=== PATIENT | male | born 1930 | race Caucasian/White ===

== ENCOUNTER 2017-12-23 07:50 | Inpatient (IN) | payer MEDICAID, OTHER ==
[~2017-12-23] VITALS: Ht 160 cm; Wt 56.2 kg
[2017-12-23] VITALS (7 sets, daily range): BP systolic 98–124; BP diastolic 47–70
[~2017-12-23 07:50] MED LIST: ACET-2863 PO; CARI350T PO; CLON0.1T42 PO; CLOP75TA PO; COZ50 PO; FESO8TER PO
[2017-12-23] MEDS ORDERED: FUROSEMIDE 100 MG/10 ML VIAL IVP ONE (07:55)
[2017-12-23] MEDS ORDERED: IPRATROPIUM 0.02% 0.5 MG/2.5 ML NEBU INH ONE (07:55)
[2017-12-23] MEDS ORDERED: ALBUTEROL 0.083% 2.5 MG/3 ML NEBU INH ONE (07:55)
--- NOTE | 2017-12-23 08:00 | NUR ---
87M BIBA FOR SOB X 50 MIN WHILE AT HOME; EMS STATES SAT ON SCENE WAS 74% ROOM AIR, EMS DELIVERED 1 ROUND OF ALBUTEROL/ATROVENT TX; PULSE OX ON ARRIVAL 95% ON NC AT 4L. PT STS HX OF PNA AND ASTHMA. PACEMAKER TO LEFT CHEST. PT ABLE TO SPEAK IN SHORT SENTENCES. RR ARE EVEN, TACHYPNIC AND LABORED. PT IS AOX4. GCS=15. SKIN IS PALE/COOL TO TOUCH. RT CALLED. ER FOWER BY BEDSIDE EXAMINING PT. WILL CONTINUE TO MONITOR.
--- NOTE | 2017-12-23 08:08 | NUR ---
PER DR GEORGIA ALEMAN FIRST HHN THERAPY AND CONNIE JOYCE AT BEDSIDE Addendum: 12/23/17 at 1114 by MCACPA "DR. BONNIE TONY"
[2017-12-23] MEDS ORDERED: DEXAMETHASONE 10 MG/ML VIAL IVP ONE (08:10)
--- NOTE | 2017-12-23 08:10 | NUR ---
ADMITTING DX: SOB HX: PATIENT DENIES SOB LOC AWAKE AND ALERT RESPONSIVE TO RN SKIN TONE PINK TACHYPNEIC AT 24 LABORED HHN THERAPY GIVEN ORDERED ENCOURAGED INTERMITTENT DEEP BREATHING DURING THERAPY POST THERAPY PLACED ON A SIMPLE MASK AY [address] HO AWARE
[2017-12-23 08:25] LABS: LYMPHOCYTES # (AUTO) 2.4 K/uL (2.0-11.5); LYMPHOCYTES % (AUTO) 18.5 % (20.5-51.1); MEAN CORPUSCULAR VOLUME 97.1 fL (80-94); MONOCYTES # (AUTO) 0.6 K/uL (0.8-1.0)
[2017-12-23 08:30] LABS: MEAN CORPUSCULAR HEMOGLOBIN 31 pg (27-31); MEAN CORPUSCULAR HGB CONC 32 g/dL (33-37)
[2017-12-23 08:34] LABS: ANION GAP 14.3 (8-16); CARBON DIOXIDE 25.1 mmol/L (21-32); CHLORIDE 107 mmol/L (98-107); CREATININE 1.6 mg/dL (0.7-1.3); GLUCOSE 168 mg/dL (74-106); POTASSIUM 3.4 mmol/L (3.5-5.1); SODIUM SERUM 143 mmol/L (136-145); UREA NITROGEN, BLOOD 47 mg/dL (7-18)
[2017-12-23 08:36] LABS: WHITE BLOOD COUNT (AUTO) 12.8 K/uL (4.8-10.8)
[2017-12-23 08:37] LABS: HEMATOCRIT 19.2 % (36-52); HEMOGLOBIN 6.2 g/dL (12.0-18.0); RED BLOOD CELL COUNT(AUTO) 1.98 MIL/uL (4.20-6.10)
[2017-12-23 08:38] LABS: PLATELET COUNT (AUTO) 307 K/uL (140-450); RED CELL DISTRIBUTION WIDTH 20.5 % (11.6-13.7)
[2017-12-23 08:39] LABS: BASOPHILS % (AUTO) 0.2 % (0.0-2.0); EOSINOPHILS # (AUTO) 0.2 K/uL (0-0.4); EOSINOPHILS % (AUTO) 1.2 % (0.0-4.0); MONOCYTES % (AUTO) 4.8 % (1.7-9.3); NEUTROPHILS # (AUTO) 9.6 K/uL (1.8-7.7); NEUTROPHILS % (AUTO) 75.3 % (42.2-75.2); PROTHROMBIN TIME 11.7 secs (10.8-13.4)
[2017-12-23 08:41] LABS: ALBUMIN 2.1 g/dL (3.4-5.0); ASPARTATE AMINOTRANSFERASE 13 U/L (15-37); TOTAL BILIRUBIN 0.4 mg/dL (0.0-1.0)
[2017-12-23] MEDS ORDERED: ONDANSETRON 4 MG/2 ML VIAL IVP ONE (08:45)
--- NOTE | 2017-12-23 08:45 | NUR ---
DAUGHTER BY BEDSIDE
--- NOTE | 2017-12-23 08:48 | NUR ---
ABG SAMPLE REPORT REVIEWED BY DR. BONNIE TOYN "EVERYTHING LOOKS GOOD" BROOMMAKER TO PULL BIPAP FROM ROOM AT A LATER TIME
[2017-12-23] MEDS ORDERED: TAMS0.4C96 PO (08:51)
[2017-12-23] MEDS ORDERED: DIT5 PO (08:51)
[2017-12-23] MEDS ORDERED: METO25TA PO (08:51)
[2017-12-23] MEDS ORDERED: FAMO-90 PO (08:51)
[2017-12-23] MEDS ORDERED: APIX5TAB PO (08:51)
[2017-12-23] MEDS ORDERED: DILT-135 PO (08:51)
[2017-12-23] MEDS ORDERED: FURO-572 PO (08:51)
[2017-12-23] MEDS ORDERED: ONDANSETRON 4 MG/2 ML VIAL ONE (09:17)
--- NOTE | 2017-12-23 09:20 | NUR ---
ZOFRAN 4MG VIA IV R HAND GIVEN. Addendum: 12/23/17 at 0930 by [email or web address] PER ELZIABETH ESQUEDA.
--- NOTE | 2017-12-23 09:22 | NUR ---
UA COLLECTED; DAUGHTER BY BEDSIDE. PT WITH NO COMPLATINS. PT DENIES ANY CP. PT WITH NO COMPLAINTS. NO ACUTE DISTRESS NOTED. WILL CONTINUE TO MONITOR.
[2017-12-23] MEDS ORDERED: LEVOFLOXACIN 500 MG/D5W PREMIX 100 ML IV ONE (10:10)
[2017-12-23] MEDS ORDERED: cefTRIAXone 1,000 MG VIAL ONE (10:20)
--- NOTE | 2017-12-23 10:20 | NUR ---
patient with no complaints. no acute distress noted. will continue to monitor.
[2017-12-23] MEDS ORDERED: NACL 0.9% 1,000 ML IV ONE (10:50)
--- NOTE | 2017-12-23 11:16 | NUR ---
Patient will be admitted to care of [facility]. Admited to Tele. Will go to room 106B. Belongings list completed. Bedside report to Vashti REYES. Endorsed to Vashti REYES blood is ready and at lab to be picked up.
[2017-12-23] MEDS ORDERED: LORazepam 2 MG/ML VIAL IVP PRN (11:20)
[2017-12-23] MEDS ORDERED: HYDROcodone/APAP 5/325 MG 1 TAB TAB PO PRN (11:20)
[2017-12-23] MEDS ORDERED: ONDANSETRON 4 MG/2 ML VIAL IVP PRN (11:20)
--- NOTE | 2017-12-23 11:20 | NUR ---
RECEIVED REPORT FROM ER NURSE. PATIENT IS IN STABLE CONDITION. PATIENT IS AWAKE, ALERT AND ORIENTEDX4. NO COMPLAINTS AT THIS TIME. 4L NC, NO RESP DISTRESS. VITALS ARE STABLE. L HAND 20 G SALINE LOCK. CLEAN, DRY AND INTACT. R FA 20G SL CLEAN, DRY AND INTACT. SENIOR INSPECTOR PLACED ON PATIENT, A.FIB. FALL RISK PRECAUTIONS IN PLACE. CALL LIGHT WITHIN REACH, BED IN LOW POSITION. BED ALARM ON. URINAL AT BEDSIDE.
--- NOTE | 2017-12-23 13:30 | NUR ---
1ST UNIT OF PRBC STARTED AT THIS TIME, PT AWAKE ALERT, AWARE OF PROCEDURE, CONSENT SIGNED PRIOR TO ADMISSION, PT INFORMED OF POSSIBLE S/S OF REACTIONS, VITALS STABLE, BLOOD PRODUCT VERIFIED BY 2 RN, ERNESTO AND SACHIN, PT ON HELIARC WELDER, WILL CONTINUE TO MONITOR.
--- NOTE | 2017-12-23 13:45 | NUR ---
PT TOLERATING BLOOD TRANSFUSION WELL, NO S/S REACTION NOTED, VITALS STABLE, WILL CONTINUE TO MONITOR.
--- NOTE | 2017-12-23 15:00 | NUR ---
IV WAS DISLODGED. IV TIP WAS PATENT. CHANGED BEDSHEETS W PAYROLL TAX ANALYST. PATIENT TOLERATED TURNS WELL. BED IN LOW POSITION. CALL LIGHT WITHIN REACH.
--- NOTE | 2017-12-23 16:30 | NUR ---
FINISHED BLOOD TRANSFUSION. PATIENT TOLERATED WELL. VITALS ARE WITHIN NORMAL LIMITS. WILL CONTINUE TO MONITOR THE PATIENT.
--- NOTE | 2017-12-23 17:00 | NUR ---
PER DAUGHTERS REQUEST NO MORPHINE OR NORCO. PATIENT GETS AGGRESSIVE.
--- NOTE | 2017-12-23 17:20 | NUR ---
2ND UNIT OF PRBC STARTED AT THIS TIME, PT AWAKE ALERT, AWARE OF PROCEDURE, CONSENT SIGNED PRIOR TO ADMISSION, PT INFORMED OF POSSIBLE S/S OF REACTIONS, VITALS STABLE, BLOOD PRODUCT VERIFIED BY 2 RN, YAHAIRA AND ELIS, PT ON SLASHER TENDER HELPER, WILL CONTINUE TO MONITOR.
--- NOTE | 2017-12-23 17:35 | NUR ---
PATIENT TOLERATED 2ND TRANSFUSION WELL. NO COMPLAINTS. VITALS ARE STABLE. BED IN LOW POSITION, CALL LIGHT WITHIN REACH. WILL CONTINUE TO MONITOR THE PATIENT.
[2017-12-23 18:57] LABS: CREATINE KINASE MB 1.6 ng/mL (0-3.6)
--- NOTE | 2017-12-23 19:30 | NUR ---
GAVE BEDSIDE REPORT TO CLINIC PHYSICIAN DIRECTOR NURSE. PATIENT IS IN STABLE CONDITION. HARESH WILL FINISH THE BLOOD TRANSFUSION.
--- NOTE | 2017-12-23 19:31 | NUR ---
RECEIVED REPORT FROM DAY SHIFT NURSE YAHAIRA-RN. AOX4-KHMER SPEAKING, ON 4L NC, WITH IV RIGHT HAND #20G. SKIN INTACT, BLE +1 PITTING EDEMA. BLOOD CONTINUES TO BE INFUSING. DISCUSSED PLAN OF CARE AND PT VERBALIZED UNDERSTANDING. WHITE BOARD UPDATED. BED IN LOWEST POSITION, BED BREAKS LOCKED. BED SIDE TABLE AND CALL LIGHT WITHIN REACH. NO S/S OF RESPIRATORY DISTRESS OR DISCOMFORT NOTED AT THIS TIME. WILL CONTINUE TO MONITOR.
[2017-12-23] MEDS: ALBUTEROL 0.083% 2.5 MG/3 ML NEBU INH PRN (19:44)
--- NOTE | 2017-12-23 19:50 | NUR ---
BLOOD TRANSFUSION COMPLETED. PT TOLERATED WELL. NO REACTION NOTED. WILL CONTINUE TO MONITOR.
[2017-12-23] MEDS ORDERED: ACETAMINOPHEN 325 MG TAB ONE (20:43)
[2017-12-23] MEDS: METOPROLOL 25 MG TAB PO SCH (21:00)
[2017-12-23] MEDS: APIXABAN 2.5 MG TAB PO SCH (21:00)
[2017-12-23] MEDS: TAMSULOSIN 0.4 MG CAP PO SCH (21:01)
[2017-12-23] MEDS: FAMOTIDINE 20 MG TAB PO SCH (21:01)
[2017-12-23] MEDS: methylPREDNISolone SS 125 MG/2 ML VIAL IVP SCH (21:02)
[2017-12-23] MEDS: ACETAMINOPHEN 325 MG TAB PO PRN (21:02)
--- NOTE | 2017-12-23 21:05 | NUR ---
SCHEDULED MEDICATION GIVEN. PT TOLERATED WELL. ELIQUIS WAS NOT GIVEN BECAUSE IT IS NOT AVAILABLE AT THIS TIME. INFORMED SOMMER-COPING MACHINE OPERATOR. SOMMER SPOKE WITH EARNESTINE AND WAS TOLD THAT THIS MEDICATION WOULD NOT BE AVAILABLE TONIGHT UNTIL TOMORROW MORNING WHEN PHARMACY MAKES IT AVAILABLE FOR THIS PT. PT IS AWARE OF THE REASON WHY HE WAS NOT GIVEN THIS MEDICATION. VERBALIZED UNDERSTANDING. LOPRESSOR WAS ALSO NOT GIVEN FOR LOW BLOOD PRESSURE BEFORE ADMINISTRATION. WILL CONTINUE TO MONITOR.
--- NOTE | 2017-12-23 22:45 | NUR ---
SPOKE WITH PT FAMILY MEMBER SHELLEY WELLS. SHE STATED IN THE EVENT THAT RENATO IS UNABLE TO BE REACHED TO PLEASE CALL HER . SHELLEY ALSO STATED THAT PT IS NOT TO BE GIVEN MORPHINE OR NORCO BECAUSE IT CAUSES PT TO BECOME AGGRESSIVE.
--- NOTE | 2017-12-23 22:55 | NUR ---
SPOKE WITH DR. ARAMBULA AIR ANTISUBMARINE OFFICER FOR DR. LOPEZ AND ASKED IF HE WAS AWARE OF THE LACTIC ACID INCREASING FROM 3.6 @0700 TO 4.9 @[address] DR[address] ARAMBULA SAID TO PUT IN ANOTHER ODER FOR LACTIC ACID TO BE CHECKED IN THE MORNING. WILL PUT IN THE ORDER.
[2017-12-24] VITALS: BP 144/81
--- NOTE | 2017-12-24 | NUR ---
VITAL SIGNS TAKEN AND TOLERATED WELL. NO S/S OF RESPIRATORY DISTRESS OR DISCOMFORT NOTED AT THIS TIME. PT CONTINUES TO BE AWAKE. PT STATED HAVING DIFFICULTY SLEEPING ALTHOUGH HE HAS FALLEN ASLEEP. HAVING DIFFICULTY STAYING ASLEEP. WILL CONTINUE TO MONITOR.
[2017-12-24] MEDS ORDERED: ACETAMINOPHEN 325 MG TAB ONE (01:12)
[2017-12-24] MEDS: ACETAMINOPHEN 325 MG TAB PO PRN (01:16)
--- NOTE | 2017-12-24 01:20 | NUR ---
PT REQUESTED PAIN MEDICATION FOR BUTTOCKS. MEDICATED WITH TYLENOL REQUESTED BY PT. FAMILY HAS WARNED NOT TO MEDICATE PT WITH MORPHINE OR NORCO BECAUSE THIS CAUSES PT TO BECOME AGGRESSIVE. PT TOLERATED TYLENOL WELL. WILL CONTINUE TO MONITOR.
--- NOTE | 2017-12-24 03:20 | NUR ---
PT SLEEPING AT THIS TIME. WILL CONTINUE TO MONITOR.
[2017-12-24 04:00] VITALS: BP 157/66
--- NOTE | 2017-12-24 04:00 | NUR ---
VITAL SIGNS TAKEN AND TOLERATED WELL. PT REQUESTED WARM BLANKET AND WARM CUP OF TEA, PROVIDED FOR COMFORT. WILL CONTINUE TO MONITOR.
[2017-12-24] MEDS: methylPREDNISolone SS 125 MG/2 ML VIAL IVP SCH ×3 (05:11→20:45)
--- NOTE | 2017-12-24 05:15 | NUR ---
SCHEDULED MEDICATION GIVEN AND TOLERATED WELL. WILL CONTINUE TO MONITOR.
[2017-12-24 06:24] LABS: BASOPHILS % (AUTO) 0.2 % (0.0-2.0); HEMATOCRIT 23.7 % (36-52); LYMPHOCYTES # (AUTO) 1.6 K/uL (2.0-11.5); LYMPHOCYTES % (AUTO) 9.8 % (20.5-51.1); MEAN CORPUSCULAR HEMOGLOBIN 31 pg (27-31); MEAN CORPUSCULAR HGB CONC 34 g/dL (33-37); MEAN CORPUSCULAR VOLUME 92.6 fL (80-94); MONOCYTES # (AUTO) 0.2 K/uL (0.8-1.0); MONOCYTES % (AUTO) 1.3 % (1.7-9.3); NEUTROPHILS # (AUTO) 14.7 K/uL (1.8-7.7); NEUTROPHILS % (AUTO) 88.7 % (42.2-75.2); PLATELET COUNT (AUTO) 265 K/uL (140-450); RED BLOOD CELL COUNT(AUTO) 2.55 MIL/uL (4.20-6.10); RED CELL DISTRIBUTION WIDTH 17.5 % (11.6-13.7); WHITE BLOOD COUNT (AUTO) 16.6 K/uL (4.8-10.8)
[2017-12-24 06:33] LABS: ALBUMIN 2.3 g/dL (3.4-5.0); ANION GAP 15.1 (8-16); ASPARTATE AMINOTRANSFERASE 14 U/L (15-37); CARBON DIOXIDE 25.6 mmol/L (21-32); CHLORIDE 103 mmol/L (98-107); CREATININE 1.5 mg/dL (0.7-1.3); GLUCOSE 151 mg/dL (74-106); POTASSIUM 4.7 mmol/L (3.5-5.1); SODIUM SERUM 139 mmol/L (136-145); TOTAL BILIRUBIN 0.6 mg/dL (0.0-1.0); UREA NITROGEN, BLOOD 58 mg/dL (7-18)
--- NOTE | 2017-12-24 06:51 | NUR ---
SPOKE WITH DR. ARAMBULA ABOUT LACTIC ACID RESULTS THAT HAVE TRENDED DOWN TO 2.5. TOLD DR WBC INCREASED TO 16.6. DR ASKED WHAT ANTIBIOTICS HE WAS ON. SINCE HE IS ON LEVAQUIN AND ROCEPHIN DID NOT GIVE ANY ORDERS.
--- NOTE | 2017-12-24 07:16 | NUR ---
ENDORSED PT CARE TO DAY SHIFT NURSE YOSEPH FOR CONTINUITY OF CARE. PT STABLE AT THIS TIME.
--- NOTE | 2017-12-24 07:30 | NUR ---
RECEIVED REPORT FROM INTERNAL WHOLESALER NURSE. PT IS AWAKE, ALERT, OX4, ON 4L NC, WITH IV RIGHT HAND 20G, PATENT, INTACT, AND ASYMPTOMATIC. SKIN INTACT, BLE +2 PITTING EDEMA. DISCUSSED PLAN OF CARE AND PT VERBALIZED UNDERSTANDING. WHITE BOARD UPDATED. BED IN LOWEST POSITION, BED BREAKS ON. CALL LIGHT WITHIN REACH. NO S/S OF RESPIRATORY DISTRESS OR DISCOMFORT NOTED AT THIS TIME. WILL CONTINUE TO MONITOR.
[2017-12-24 08:00] VITALS: BP 128/54
[2017-12-24] MEDS: ALBUTEROL 0.083% 2.5 MG/3 ML NEBU INH PRN ×2 (08:04→14:16)
--- NOTE | 2017-12-24 08:05 | NUR ---
SATURATION 96% ON SUPPLEMENTALO OXYGEN AT 4 LPM VIA NC POST HHN THERAPY TITRATED FIO2 TO 3 LPM HECTOR/RN NOTIFIED
--- NOTE | 2017-12-24 08:32 | NUR ---
CALLED , PT'S DAUGHTER SHELLEY. TOLD HER TO BRING EYEDROPS FOR PT. SHE SAID SHE WILL COME TODAY.
--- NOTE | 2017-12-24 08:38 | NUR ---
PATIENT HAS BEEN SCREENED AND CATEGORIZED MODERATE NUTRITION RISK. PATIENT WILL BE SEEN WITHIN 3-5 DAYS OF ADMISSION. 12/26/17 12/28/[address]
[2017-12-24] MEDS ORDERED: ENOXAPARIN 40 MG/0.4 ML SYR SUBQ SCH (09:00)
[2017-12-24] MEDS ORDERED: [UNRECOGNIZED DRUG - CODE] OP (09:27)
[2017-12-24] MEDS: FUROSEMIDE 40 MG/4 ML VIAL IVP SCH (09:29)
[2017-12-24] MEDS: DILTIAZEM 120 MG CAPER PO SCH (09:30)
[2017-12-24] MEDS: METOPROLOL 25 MG TAB PO SCH ×2 (09:30→20:46)
[2017-12-24] MEDS: FAMOTIDINE 20 MG TAB PO SCH ×2 (09:30→20:46)
[2017-12-24] MEDS: OXYBUTYNIN 5 MG TAB PO SCH (09:31)
[2017-12-24] MEDS: APIXABAN 2.5 MG TAB PO SCH ×2 (09:41→20:51)
[2017-12-24 10:43] LABS: CREATINE KINASE MB 1.9 ng/mL (0-3.6)
[2017-12-24] MEDS ORDERED: LEVOFLOXACIN 750 MG/D5W PREMIX 150 ML IV SCH (11:20)
[2017-12-24 12:00] VITALS: BP 108/42
--- NOTE | 2017-12-24 14:17 | NUR ---
DURING HHN THERAPY ENCOURAGED PATIENT FOR DEEP BREATHING AND COUGH SPONTANEOUS EXPECTORATION FOR SMALL THIN YELLOW/CLEAR SECRETIONS
--- NOTE | 2017-12-24 14:22 | NUR ---
INITIAL REVIEW FAXED TO DORIS SEAMAN AT [facility] [phone] PHONE [phone]
[2017-12-24 16:00] VITALS: BP 112/41
--- NOTE | 2017-12-24 17:00 | NUR ---
HELPED PT GOT UP USING BEDSIDE COMMODE, NO S/S OF ACUTE DISTRESS. PT HAD A BM, FORMED BROWN STOOL. CHANGED PT'S BED LINENS.
--- NOTE | 2017-12-24 19:30 | NUR ---
REPORT GIVEN FIBER WORKER NURSE. PT IN STABLE CONDITION.
--- NOTE | 2017-12-24 19:30 | NUR ---
RECEIVED PT IN STABLE CONDITION FROM AM NURSE. AWAKE, ALERT AND ORIENTED X4. SWEDISH SPEAKING. ON TELE MONITOR. BEDREST. WITH IVF INFUSING WELL ON THE RT HAND #20. CLEAR AND PATENT. PLAN OF CARE DISCUSSED AND VERBALIZED UNDERSTANDING. BED ON LOW POSITION, FREQUENT ROUNDS NEEDED. CALL LIGHT AND URINAL PLACED WITHIN EASY REACH. INSTRUCTED TO CALL FOR ANY ASSISTANCE NEEDED. WILL CONTINUE TO MONITOR.
[2017-12-24 20:00] VITALS: BP 112/47
[2017-12-24] MEDS: RESTASIS 0.05% EYE EMULSION OP SCH (20:45)
[2017-12-24] MEDS: TAMSULOSIN 0.4 MG CAP PO SCH (20:46)
[2017-12-24] MEDS ORDERED: COMMUNICATION ORDER MC SCH (21:00)
--- NOTE | 2017-12-24 21:00 | NUR ---
PT ABLE TO TAKE DUE MEDS. NO C/O ANY DISCOMFORT NOTED. NO SOB ALSO NOTED.
--- NOTE | 2017-12-24 22:00 | NUR ---
MADE ROUNDS. PT IS AWAKE. STILL WITH OCCASIONAL PRODUCTIVE COUGH. NO SOB NOTED.
[2017-12-25 00:20] VITALS: BP 125/54
[2017-12-25] MEDS: ACETAMINOPHEN 325 MG TAB PO PRN (00:52)
--- NOTE | 2017-12-25 01:52 | NUR ---
MADE ROUNDS. PT ASLEEP. NO S/S OF ANY DISCOMFORT NOR PAIN NOTED.
--- NOTE | 2017-12-25 03:00 | NUR ---
MADE ROUNDS. PT ASLEEP. NO SOB NOTED. WILL CONTINUE TO MONITOR.
[2017-12-25 04:20] VITALS: BP 118/47
[2017-12-25] MEDS: methylPREDNISolone SS 125 MG/2 ML VIAL IVP SCH ×2 (04:39→12:31)
--- NOTE | 2017-12-25 05:00 | NUR ---
PT IS ASLEEP AT THIS TIME. NO SOB NOR DISCOMFORT NOTED.
[2017-12-25 06:47] LABS: BASOPHILS % (AUTO) 0.3 % (0.0-2.0); EOSINOPHILS % (AUTO) 0.2 % (0.0-4.0); HEMATOCRIT 23.7 % (36-52); HEMOGLOBIN 7.8 g/dL (12.0-18.0); LYMPHOCYTES # (AUTO) 1.2 K/uL (2.0-11.5); LYMPHOCYTES % (AUTO) 8.4 % (20.5-51.1); MEAN CORPUSCULAR HEMOGLOBIN 31 pg (27-31); MEAN CORPUSCULAR HGB CONC 33 g/dL (33-37); MEAN CORPUSCULAR VOLUME 93.8 fL (80-94); MONOCYTES # (AUTO) 0.2 K/uL (0.8-1.0); MONOCYTES % (AUTO) 1.5 % (1.7-9.3); NEUTROPHILS # (AUTO) 12.6 K/uL (1.8-7.7); NEUTROPHILS % (AUTO) 89.6 % (42.2-75.2); PLATELET COUNT (AUTO) 274 K/uL (140-450); RED BLOOD CELL COUNT(AUTO) 2.52 MIL/uL (4.20-6.10); RED CELL DISTRIBUTION WIDTH 18.2 % (11.6-13.7)
[2017-12-25 07:03] LABS: ANION GAP 12.8 (8-16); CARBON DIOXIDE 25.8 mmol/L (21-32); CHLORIDE 103 mmol/L (98-107); CREATININE 1.5 mg/dL (0.7-1.3); GLUCOSE 154 mg/dL (74-106); POTASSIUM 4.6 mmol/L (3.5-5.1); SODIUM SERUM 137 mmol/L (136-145); UREA NITROGEN, BLOOD 58 mg/dL (7-18)
--- NOTE | 2017-12-25 07:20 | NUR ---
ENDORSED PT IN STABLE CONDITION TO AM NURSE.
--- NOTE | 2017-12-25 07:22 | NUR ---
RECEIVED REPORT FROM COOK BOAT NURSE AT BEDSIDE FOR CONTINUITY OF CARE. PATIENT AWAKE, ALERT AND ORIENTED X4. TAMAZIGHT SPEAKING. ON BEDREST WITH TELE MONITOR. IV ON THE RT HAND #20, PATENT, ASYMPTOMATIC, AND INTACT, SALINE LOCK. PLAN OF CARE DISCUSSED AND PATIENT VERBALIZED UNDERSTANDING. SAFETY PRECAUTION IN PLACE, BED ON LOW POSITION, BED ALARM ON, CALL LIGHT AND URINAL PLACED WITHIN EASY REACH. INSTRUCTED TO CALL FOR ANY ASSISTANCE NEEDED. WILL CONTINUE TO MONITOR PATIENT.
[2017-12-25 08:00] VITALS: BP 123/48
--- NOTE | 2017-12-25 08:24 | NUR ---
ORDERED MEDICATIONS GIVEN. PATIENT TOLERATED THEM WELL. FAMILY AT BEDSIDE, NO SIGNS OF DISTRESS OR SOB NOTED ON 3L HUMIDIFIED O2 VIA NC. PATIENT DENIES PAIN. SAFETY PRECAUTION IN PLACE, URINAL AND CALL LIGHT WITHIN REACH. WILL CONTINUE TO MONITOR PATIENT.
[2017-12-25] MEDS: METOPROLOL 25 MG TAB PO SCH (08:32)
[2017-12-25] MEDS: DILTIAZEM 120 MG CAPER PO SCH (08:32)
[2017-12-25] MEDS: FAMOTIDINE 20 MG TAB PO SCH (08:32)
[2017-12-25] MEDS: FUROSEMIDE 40 MG/4 ML VIAL IVP SCH (08:32)
[2017-12-25] MEDS: OXYBUTYNIN 5 MG TAB PO SCH (08:32)
[2017-12-25] MEDS: RESTASIS 0.05% EYE EMULSION OP SCH (08:33)
[2017-12-25] MEDS: APIXABAN 2.5 MG TAB PO SCH (08:38)
[2017-12-25] MEDS ORDERED: LEVO750T2 PO (11:06)
[2017-12-25] MEDS ORDERED: FURO-570 PO (11:07)
--- NOTE | 2017-12-25 11:08 | NUR ---
DR. LOPEZ IN TO SEE THE PATIENT. DISCHARGE ORDER IN. PATIENT AWARE. FAMILY MEMBERS AT BEDSIDE AWARE. PATIENT RESTING IN BED WATCHING TV. NO SIGNS OF DISTRESS OR SOB NOTED ON 3L HUMIDIFIED O2 VIA NC. PATIENT DENIES PAIN. SAFETY PRECAUTION IN PLACE, CALL LIGHT WITHIN REACH. WILL CONTINUE TO MONITOR PATIENT.
--- NOTE | 2017-12-25 11:11 | NUR ---
CALLED PATIENT'S GRANDDAUGHTER RENATO TO MAKE HER AWARE OF PATIENT'S IMPENDING DISCHARGE. SHE VERBALIZED UNDERSTANDING AND SAID THAT SHE WILL CONTACT HER UNCLES WHO LIVES WITH THE PATIENT TO GIVE THEM THE NEWS.
--- NOTE | 2017-12-25 11:20 | NUR ---
RECEIVED CALL FROM LAB AT 1110. PATIENT'S URINE POSITIVE FOR E. COLI, MDRO, AND ESBL. PAGED DR. LOPEZ. WILL AWAIT FOR HIS CALL BACK AND UPDATED ORDERS.
--- NOTE | 2017-12-25 11:24 | NUR ---
ORDERED MEDICATIONS GIVEN. PATIENT TOLERATED IT WELL. FAMILY AT BEDSIDE, NO SIGNS OF DISTRESS OR SOB NOTED ON 3L HUMIDIFIED O2 VIA NC. PATIENT DENIES PAIN. SAFETY PRECAUTION IN PLACE, CALL LIGHT WITHIN REACH. WILL CONTINUE TO MONITOR PATIENT.
[2017-12-25 12:00] VITALS: BP 114/42
[2017-12-25] MEDS ORDERED: Z-GUARD PASTE TP SCH (13:00)
--- NOTE | 2017-12-25 13:05 | NUR ---
PAGED DR. LOPEZ AGAIN FOR PATIENT'S URINE RESULTS. AWAITING HIS CALL BACK.
--- NOTE | 2017-12-25 13:09 | NUR ---
DR. LOPEZ CALLED BACK. DR. LOPEZ SAID TO HOLD DC FOR NOW. PATIENT UPDATED WITH THIS INFORMATION. JAYNE GROSS WAS CALLED AND UPDATED WITH THIS INFORMATION.
--- NOTE | 2017-12-25 13:25 | NUR ---
PATIENT MOVED FROM ROOM 106B TO 116. EXPLAINED TO PATIENT HIS URINE RESULTS AND CONTACT PRECAUTION AND PROTOCOL. PATIENT'S SON, AYESHA, CAME TO VISIT, EDUCATED HIM ON CONTACT PRECAUTION AND PROTOCOL, HE VERBALIZED UNDERSTANDING. PATIENT NOW RESTING IN BED, NO SIGNS OF DISTRESS OR SOB NOTED ON 3L OF HUMIDIFIED O2 VIA NC. SAFETY AND ISOLATION PRECAUTION IN PLACE, BED ON LOWEST SETTING, CALL LIGHT WITHIN REACH. WILL CONTINUE TO MONITOR PATIENT.
--- NOTE | 2017-12-25 14:00 | NUR ---
DR. LOPEZ CALLED BACK WITH UPDATED ORDERS. PATIENT OK TO GO HOME. NEW PRESCRIPTION OF AUGMENTIN WILL BE ADDED TO PATIENT'S MEDICATIONS. RN GAVE DR. LOPEZ INFORMATION ON PATIENT'S PREFERRED PHARMACY, [facility] ON [address] DR. LOPEZ SAID HE WILL CALL IN THE PRESCRIPTION FOR THE AUGMENTIN. RN VERBALIZED UNDERSTANDING.
[2017-12-25] MEDS ORDERED: AMOX-999 PO (14:24)
--- NOTE | 2017-12-25 15:19 | NUR ---
CALLED RENATO AGAIN TO INFORM HER OF PATIENT'S DISCHARGE. SHE VERBALIZED UNDERSTANDING AND SAID SHE WILL CONTACT AYESHA TO COME PICK PATIENT UP AT APPROPRIATE TIME AND TAKE HIM HOME.
--- NOTE | 2017-12-25 15:45 | NUR ---
DISCHARGE INSTRUCTION AND EDUCATION GIVEN TO PATIENT AND HIS SON, AYESHA. PRESCRIPTION FOR AUGMENTIN CALLED IN TO PATIENT'S PREFERRED PHARMACY [facility] ON [address] IN [place] BY DR. LOPEZ. PATIENT AND AYESHA AWARE AND VERBALIZED UNDERSTANDING. IV REMOVED, IV CATHETER INTACT, MINIMAL BLOOD NOTED. ID BANDS REMOVED, TELE MONITOR REMOVED. PATIENT NOW WILL CHANGED AND GET READY TO BE DISCHARGED.
--- NOTE | 2017-12-25 16:05 | NUR ---
PATIENT WHEELED OFF FLOOR ACCOMPANIED BY NURSE AND SON, AYESHA. PATIENT TOOK ALL OF HIS BELONGINGS WITH HIM. PATIENT IN STABLE CONDITION.
== END 2017-12-25 16:05 | disposition home or self-care (01) | DRG 871 ==
LOC: MED 07:50 → MTU 11:13 → MED 11:16 → MTU 12-25 14:18
PROVIDERS: ADMIT Hospitalist; ATTEND Hospitalist
PROC: 30233N1 Transfusion of Nonautologous Red Blood Cells into Peripheral Vein, Percutaneous Approach (ICD-10-PCS; principal; 2017-12-23)
DX: A41.9 Sepsis, unspecified organism (principal); J18.9 Pneumonia, unspecified organism; E87.2 Acidosis; I13.0 Hypertensive heart and chronic kidney disease with heart failure and stage 1 through stage 4 chronic kidney disease, or unspecified chronic kidney disease; E88.09 Other disorders of plasma-protein metabolism, not elsewhere classified; I95.9 Hypotension, unspecified; I48.0 Paroxysmal atrial fibrillation; I50.9 Heart failure, unspecified; J44.0 Chronic obstructive pulmonary disease with (acute) lower respiratory infection; J44.1 Chronic obstructive pulmonary disease with (acute) exacerbation; E87.6 Hypokalemia; D64.9 Anemia, unspecified; E03.9 Hypothyroidism, unspecified; N40.0 Benign prostatic hyperplasia without lower urinary tract symptoms; N18.9 Chronic kidney disease, unspecified; Y95 Nosocomial condition; Z87.891 Personal history of nicotine dependence; Z95.0 Presence of cardiac pacemaker; Z79.899 Other long term (current) drug therapy
CPT/HCPCS: 36415; 36600; 71045; 80048; 80053; 82550; 82553; 82803; 82948; 83540; 83605; 83874; 83880; 84484; 85025; 85379; 85610; 85730; 86886; 86900; 86901; 86920; 87040; 87081; 87086; 87186; 93005; 94640; 96365; 96367; 96375; 99285; J0696; J1100; J1940; J1956; J2405; J2930; J7030; J7060; J7613; J7644; P9016; Q0092

== ENCOUNTER 2018-01-06 10:40 | Inpatient (IN) | payer OTHER ==
[~2018-01-06] VITALS: Ht 165.1 cm; Wt 57.7 kg
[~2018-01-06 10:40] MED LIST changes: -ACET-2863 PO; +AMOX-999 PO; +APIX5TAB PO; -CARI350T PO; -CLON0.1T42 PO; -CLOP75TA PO; -COZ50 PO; +DILT-135 PO; +DIT5 PO; +FAMO-90 PO; -FESO8TER PO; +FURO-570 PO; +FURO-572 PO; +LEVO750T2 PO; +METO25TA PO; +TAMS0.4C96 PO; +[UNRECOGNIZED DRUG - CODE] OP
--- NOTE | 2018-01-06 10:43 | NUR ---
PT BIBA BLS TO BED 6
[2018-01-06 10:49] VITALS: BP 112/57
--- NOTE | 2018-01-06 10:50 | NUR ---
87 /M BIBA FROM HOME FOR LBP & LALO FOOT PAIN & SWELLING X 1 WEEK. DENIES N/V/D; SKIN IS PINK/WARM/DRY; AAOX4 , AMB WITH ASSISTANCE AT HOME; LUNGS CONGESTED BL. PATIENT STATES PAIN OF 5/10 AT THIS TIME; VSS; PATIENT POSITIONED FOR COMFORT; HOB ELEVATED; BEDRAILS UP X2; BED DOWN. ER MADE AWARE OF PT STATUS. Addendum: 01/06/18 at 1338 by [email or web address] BLISTER R BUTTOCK
--- NOTE | 2018-01-06 10:50 | NUR ---
Note undone in EDM - 01/06/18 at 1302 by [email or web address] 87 /M BIBA FROM HOME FOR LBP & LALO FOOT PAIN & SWELLING X 1 WEEK. DENIES N/V/D; SKIN IS PINK/WARM/DRY; AAOX4 , AMB WITH ASSISTANCE AT HOME; LUNGS CLEAR BL. PATIENT STATES PAIN OF 5/10 AT THIS TIME; VSS; PATIENT POSITIONED FOR COMFORT; HOB ELEVATED; BEDRAILS UP X2; BED DOWN. ER MD MADE AWARE OF PT STATUS.
[2018-01-06] MEDS ORDERED: NACL 0.9% 1,000 ML IV ONE ×2 (11:05→12:00)
[2018-01-06] MEDS: ALBUTEROL SULFATE/IPRATROPIU 3 ML SOL IH ONE ×2 (11:20→13:16)
[2018-01-06 11:50] LABS: BASOPHILS % (AUTO) 0.3 % (0.0-2.0); EOSINOPHILS # (AUTO) 0.3 K/uL (0-0.4); EOSINOPHILS % (AUTO) 2.1 % (0.0-4.0); HEMATOCRIT 23.2 % (36-52); HEMOGLOBIN 7.5 g/dL (12.0-18.0); LYMPHOCYTES # (AUTO) 1.5 K/uL (2.0-11.5); LYMPHOCYTES % (AUTO) 12.3 % (20.5-51.1); MEAN CORPUSCULAR HEMOGLOBIN 31 pg (27-31); MEAN CORPUSCULAR HGB CONC 32 g/dL (33-37); MEAN CORPUSCULAR VOLUME 96.4 fL (80-94); MONOCYTES # (AUTO) 0.8 K/uL (0.8-1.0); MONOCYTES % (AUTO) 6.9 % (1.7-9.3); NEUTROPHILS # (AUTO) 9.6 K/uL (1.8-7.7); NEUTROPHILS % (AUTO) 78.4 % (42.2-75.2); PLATELET COUNT (AUTO) 238 K/uL (140-450); RED BLOOD CELL COUNT(AUTO) 2.41 MIL/uL (4.20-6.10); RED CELL DISTRIBUTION WIDTH 17.3 % (11.6-13.7); WHITE BLOOD COUNT (AUTO) 12.2 K/uL (4.8-10.8)
[2018-01-06] MEDS ORDERED: ALBUTEROL 0.083% 2.5 MG/3 ML NEBU INH ONE (11:50)
[2018-01-06] MEDS ORDERED: VANCOMYCIN 1,000 MG in DEXTROSE 5% 250 ML IV ONE (12:00)
[2018-01-06] MEDS ORDERED: methylPREDNISolone SS 125 MG/2 ML VIAL IVP ONE (12:00)
[2018-01-06] MEDS ORDERED: PIPERACILLIN/TAZOBACTAM 3.375 GM in DEXTROSE 5% 50 ML IV ONE (12:00)
[2018-01-06] MEDS ORDERED: TAMS0.4C96 PO (12:10)
[2018-01-06] MEDS ORDERED: METO50TE2 PO (12:12)
[2018-01-06] MEDS ORDERED: DIT5 PO (12:13)
[2018-01-06] MEDS ORDERED: FAMO-90 PO (12:14)
[2018-01-06] MEDS ORDERED: FURO-572 PO (12:15)
[2018-01-06 12:16] LABS: ALBUMIN 2.5 g/dL (3.4-5.0); ANION GAP 10.2 (8-16); ASPARTATE AMINOTRANSFERASE 15 U/L (15-37); CARBON DIOXIDE 31.7 mmol/L (21-32); CHLORIDE 101 mmol/L (98-107); CREATININE 1.6 mg/dL (0.7-1.3); GLUCOSE 114 mg/dL (74-106); POTASSIUM 3.9 mmol/L (3.5-5.1); SODIUM SERUM 139 mmol/L (136-145); TOTAL BILIRUBIN 0.5 mg/dL (0.0-1.0); UREA NITROGEN, BLOOD 41 mg/dL (7-18)
[2018-01-06] MEDS ORDERED: DILT-135 (12:16)
[2018-01-06] MEDS ORDERED: FLONAS NS (12:19)
[2018-01-06] MEDS ORDERED: NACL 0.9% 1,000 ML IV SCH (12:34)
[2018-01-06] MEDS ORDERED: ACETAMINOPHEN 325 MG TAB PO PRN ×2 (12:35→13:20)
[2018-01-06] MEDS ORDERED: ONDANSETRON 4 MG/2 ML VIAL IM/IVP PRN (12:35)
[2018-01-06] MEDS ORDERED: DOCUSATE SODIUM 100 MG GELCAP PO PRN (12:35)
[2018-01-06] MEDS ORDERED: HYDROcodone/APAP 7.5/325 MG 1 TAB PO PRN (12:35)
[2018-01-06] MEDS ORDERED: PIPERACILLIN/TAZOBACTAM 3.375 GM VIAL IV ONE (12:42)
[2018-01-06] MEDS ORDERED: VANCOMYCIN 1,000 MG VIAL ONE (12:42)
[2018-01-06 12:56] LABS: APPEARANCE,URINE CLEAR (CLEAR); BILIRUBIN,URINE NEGATIVE (NEGATIVE); BLOOD, URINE NEGATIVE (NEGATIVE); COLOR,URINE YELLOW (YELLOW); LEUKOCYTE ESTERASE ,URINE NEGATIVE (NEGATIVE); NITRITE, URINE NEGATIVE (NEGATIVE); PH,URINE 7.5 (5.0-9.0); UGLUCOSE NEGATIVE (NEGATIVE)
[2018-01-06] MEDS ORDERED: APIX5TAB PO (13:01)
[2018-01-06] MEDS ORDERED: ALBUTEROL SULFATE/IPRATROPIU 3 ML SOL IH ONE (13:15)
[2018-01-06] MEDS ORDERED: ONDANSETRON 4 MG/2 ML VIAL IVP PRN (13:20)
[2018-01-06] MEDS ORDERED: LORazepam 2 MG/ML VIAL IVP PRN (13:20)
--- NOTE | 2018-01-06 13:21 | NUR ---
RT AT BEDSIDE
[2018-01-06 13:30] LABS: RBC,URINE 0-5 (RARE) /HPF (0-5); WBC,URINE 0-5 (RARE) /HPF (0-5)
[2018-01-06] MEDS ORDERED: VANCOMYCIN PER PHARMACY MC PRN (13:30)
[2018-01-06 13:33] LABS: PROTHROMBIN TIME 10.9 secs (10.8-13.4)
--- NOTE | 2018-01-06 13:55 | NUR ---
PATIENT ARRIVED ON [facility] UNIT FROM ER BED/GURNEY, ABLE TO AMBULATE FROM ER BED/GURNEY TO MST BED WITH ASSISTANCE. NO DISTRESS NOTED. V/S STABLE. RESPIRATIONS EVEN, UNLABORED, ON 3L/MIN VIA NC. AAOX3, CALM, COOPERATIVE, SKIN COLOR APPROPRIATE TO ETHNICITY, WARM TO TOUCH. HAS RIGHT HIP BLISTER THAT IS NOT OPEN, OTHERWISE SKIN INTACT THROUGHOUT BODY. IV SITE INTACT, PATENT, AND INFUSING IV ANTIBIOTIC AT THIS TIME. ABDOMEN SOFT, NON-DISTENDED. PAIN WITHIN TOLERABLE AT THIS TIME. ORIENTED PATIENT TO ROOM AND CALL LIGHT. REVIEWED PLAN OF CARE WITH PATIENT. PATIENT VERBALIZED UNDERSTANDING. SAFETY MEASURES IN PLACE, CALL LIGHT WITHIN REACH. WILL CONTINUE TO MONITOR.
[2018-01-06 14:05] LABS: CHOL/HDL RATIO 2.1 (1-4.5); FREE T4 (FREE THYROXINE) 0.85 ng/dL (0.76-1.46); MAGNESIUM 2.4 mg/dL (1.8-2.4); PHOSPHORUS 4.3 mg/dL (2.5-4.9); THYROID STIMULATING HORMONE 5.65 uIU/mL (0.34-3.74)
--- NOTE | 2018-01-06 14:05 | NUR ---
Patient will be admitted to [facility]. Admited to TELE. Will go to room 119B. Belongings list completed. Report to ZULEMA REYES.
[2018-01-06 14:13] VITALS: BP 112/50
[2018-01-06] MEDS: NACL 0.9% 1,000 ML IV SCH ×2 (15:01→15:37)
--- NOTE | 2018-01-06 16:00 | NUR ---
PATIENT LYING IN BED SLEEPING, AROUSABLE BY VOICE. NO DISTRESS NOTED. DENIES ANY PAIN AT THIS TIME. RESPIRATIONS EVEN, UNLABORED, ON O2 3L/MIN VIA NC. SAFETY MEASURES IN PLACE, CALL LIGHT WITHIN REACH. WILL CONTINUE TO MONITOR.
[2018-01-06] MEDS: HYDROcodone/APAP 5/325 MG 1 TAB TAB PO PRN (18:23)
--- NOTE | 2018-01-06 18:24 | NUR ---
ASSISTED PATIENT TO BATHROOM AND BACK TO BED. COMPLAINS OF 6/10 LOW BACK PAIN, NORCO GIVEN PER MD ORDERS. SAFETY MEASURES IN PLACE, CALL LIGHT WITHIN REACH. WILL CONTINUE TO MONITOR.
--- NOTE | 2018-01-06 19:30 | NUR ---
GAVE REPORT TO RADIO ANNOUNCER NURSE FOR CONTINUITY OF CARE. PATIENT IN STABLE CONDITION.
--- NOTE | 2018-01-06 19:31 | NUR ---
RECD. RESTING IN BED, AWAKE, A/OX3, ZAMBIAN BUT ABLE TO SPEAK AND UNDERSTAND SWEDISH. WATCHING TV. RESPIRATION EVEN AND UNLABORED. ON AT 3 LITERS VIA N/C, 02 SAT - 94%. DIMINISHED LUNG SOUNDS ON BILATERAL AUSCULTATION. IV OF NS AT 80 ML/HR INFUSING, RIGHT AC G20. WITH OCCASIONAL PRODUCTIVE COUGHING, MODERATE AMOUNT OF PHLEGM, WHITE IN COLOR NOTED. SAFETY MEASURES ENFORCED. PLAN OF CARE FOR THE SHIFT DISCUSSED. VERBALIZED UNDERSTANDING. DENIES PAIN 0/10.
--- NOTE | 2018-01-06 19:52 | NUR ---
Patient's Plan of Care was discussed and reviewed with SECURITY INTELLIGENCE ANALYST: Anna MILLAN.
[2018-01-06 20:00] VITALS: BP 123/41
[2018-01-06 20:16] LABS: CREATINE KINASE MB 1.5 ng/mL (0-3.6)
--- NOTE | 2018-01-06 20:47 | NUR ---
RECEIVED PATIENT ON 3L NASAL CANNULA. O2 SAT 94%. NO RESPIRATORY DISTRESS NOTED. NO BREATHING TX INDICATED AT THIS TIME. WILL CONTINUE TO MONITOR.
[2018-01-06] MEDS ORDERED: PIPERACILLIN/TAZOBACTAM 3.375 GM in DEXTROSE 5% 50 ML IV SCH (21:00)
[2018-01-06] MEDS: PIPER/TAZO 3.375GM/D5W PREMIX 50 ML IV SCH (21:00)
[2018-01-06] MEDS: PIPERACILLIN/TAZOBACTAM 3.375 GM VIAL IV ONE ×2 (22:11→22:15)
[2018-01-07] VITALS: BP 128/51
--- NOTE | 2018-01-07 | NUR ---
SLEEPING COMFORTABLY IN BED.
[2018-01-07] MEDS: HYDROcodone/APAP 5/325 MG 1 TAB TAB PO PRN ×3 (01:16→23:19)
--- NOTE | 2018-01-07 01:45 | NUR ---
AMBULATED TO BR. HAD LIQUID BM BLACK IN COLOR, MODERATE AMOUNT. WILL INFORMED .
[2018-01-07] MEDS: NACL 0.9% 1,000 ML IV SCH ×3 (01:50→21:11)
[2018-01-07] MEDS: ALBUTEROL 0.083% 2.5 MG/3 ML NEBU IH PRN ×3 (02:00→19:39)
--- NOTE | 2018-01-07 03:00 | NUR ---
SLEEPING COMFORTABLY IN BED.
[2018-01-07 04:00] VITALS: BP 123/51
[2018-01-07] MEDS ORDERED: PIPERACILLIN/TAZOBACTAM 3.375 GM VIAL IV ONE (05:27)
--- NOTE | 2018-01-07 05:30 | NUR ---
ASSISTED TO AMBULATE IN THE BR TO VOID. BACK TO BED AFTER VOIDING. WITH SOB ON EXERTION.
[2018-01-07] MEDS: PIPER/TAZO 3.375GM/D5W PREMIX 50 ML IV SCH ×3 (05:42→21:11)
[2018-01-07 06:25] LABS: LYMPHOCYTES # (AUTO) 0.7 K/uL (2.0-11.5); LYMPHOCYTES % (AUTO) 11.6 % (20.5-51.1); MEAN CORPUSCULAR HEMOGLOBIN 32 pg (27-31); MEAN CORPUSCULAR HGB CONC 33 g/dL (33-37); MEAN CORPUSCULAR VOLUME 95.9 fL (80-94); MONOCYTES # (AUTO) 0.1 K/uL (0.8-1.0); MONOCYTES % (AUTO) 1.4 % (1.7-9.3); NEUTROPHILS # (AUTO) 5.5 K/uL (1.8-7.7); PLATELET COUNT (AUTO) 198 K/uL (140-450); RED BLOOD CELL COUNT(AUTO) 2.03 MIL/uL (4.20-6.10); WHITE BLOOD COUNT (AUTO) 6.4 K/uL (4.8-10.8)
[2018-01-07 06:45] LABS: ANION GAP 13.2 (8-16); CARBON DIOXIDE 24.9 mmol/L (21-32); CHLORIDE 106 mmol/L (98-107); CREATININE 1.4 mg/dL (0.7-1.3); GLUCOSE 143 mg/dL (74-106); POTASSIUM 4.1 mmol/L (3.5-5.1); SODIUM SERUM 140 mmol/L (136-145); UREA NITROGEN, BLOOD 38 mg/dL (7-18)
[2018-01-07 06:54] LABS: HEMOGLOBIN 6.5 g/dL (12.0-18.0)
[2018-01-07 06:55] LABS: HEMATOCRIT 19.5 % (36-52)
--- NOTE | 2018-01-07 07:00 | NUR ---
SLEEPING COMFORTABLY IN BED. NO RESPIRATORY DISTRESS NOTED DURING SHIFT. WILL ENDORSED TO AM NURSE FOR CONTINUITY OF CARE.
--- NOTE | 2018-01-07 07:30 | NUR ---
PT REPORT RECEIVED FORM CONTENT SPECIALIST NURSE. PT HGB 6.5, 2 PRBC ORDERED. PT RESPIRATIONS EVEN, UNLABORED, ON 3L/MIN VIA NC. PT IS AAOX3. PT HAD BLACK STOOL ACCORDING TO CONTENT SPECIALIST NURSE. IV SITE TO THE RIGHT AC, INTACT, PATENT, AND INFUSING WELL. ABDOMEN SOFT, NON-DISTENDED. PAIN WITHIN TOLERABLE AT THIS TIME. CALL LIGHT WITHIN REACH. SAFETY MEASURES IN PLACE, WILL CONTINUE TO MONITOR.
[2018-01-07 07:32] LABS: T4 (THYROXINE) 5.8 ug/dL (4.5-12.0)
[2018-01-07 08:00] VITALS: BP 120/60
--- NOTE | 2018-01-07 09:10 | NUR ---
LAB CANCELLED PRBC, CALLED LAB WHO SAID NEED NEW TYPE AND SCREEN AND CROSS MATCH BECAUSE IT WAS NOT DONE IN ER.
--- NOTE | 2018-01-07 10:10 | NUR ---
HELPED PT AMB TO RESTROOM, PT HAD BLACK STOOL. SAMPLE COLLECTED AND SENT TO LAB.
[2018-01-07 12:00] VITALS: BP 148/55
--- NOTE | 2018-01-07 13:25 | NUR ---
Membership Sales Manager Note: I called and spoke with Asia from [facility] , informed her patient reported his home O2 concentrator isn't working properly. Per Asia, she will contact patient's sons Barrett or Beka and assist them with this issue.
--- NOTE | 2018-01-07 13:43 | NUR ---
PATIENT HAS BEEN SCREENED AND CATEGORIZED HIGH NUTRITION RISK. PATIENT WILL BE SEEN WITHIN 1-2 DAYS OF ADMISSION. 01/07/18 01/08/[address]
--- NOTE | 2018-01-07 13:50 | NUR ---
[facility] and when discharge to use [facility] home health , he is in special program [facility] [phone]
--- NOTE | 2018-01-07 14:10 | NUR ---
FIRST UNIT OF PRBC OBTAIN, WILL START ADMINISTERING.
[2018-01-07] MEDS: VANCOMYCIN 750 MG in DEXTROSE 5% 250 ML IV SCH (14:16)
[2018-01-07 15:04] LABS: CREATINE KINASE MB 2.7 ng/mL (0-3.6)
[2018-01-07 16:00] VITALS: BP 107/81
--- NOTE | 2018-01-07 18:25 | NUR ---
SECOND PRBC RUNNING RIGHT NOW. PT IS AFEBRILE. BP STABLE.
[2018-01-07] MEDS: MUPIROCIN 2% OINT 22 GM TUBE TP SCH (18:54)
[2018-01-07] MEDS: CHLORHEXADINE GLUC 2% CLOTH TP SCH (18:54)
--- NOTE | 2018-01-07 19:30 | NUR ---
REPORT GIVEN TO TANK TRUCK OPERATOR RN. PT IN STABLE CONDITION.
--- NOTE | 2018-01-07 19:31 | NUR ---
PT REPORT RECEIVED FORM HORSE TREKKING GUIDE NURSE. CONTINUED RBC INFUSION. ANOX3, PT RESPIRATIONS EVEN, UNLABORED, ON 3L/MIN VIA NC, IV SITE TO THE RIGHT AC, INTACT, PATENT, AND INFUSING WELL. NO S/S OF RESPIRATORY DISTRESS OR DISCOMFORT AT THIS TIME. DISCUSSED PLAN OF CARE AND PT VERBALIZED UNDERSTANDING. WHITE BOARD UPDATED. BED IN LOWEST POSITION, BED BREAKS ON. BED SIDE TABLE AND CALL LIGHT WITHIN REACH. WILL CONTINUE TO MONITOR.
[2018-01-07 20:00] VITALS: BP 148/60
[2018-01-07] MEDS ORDERED: METOPROLOL SUCCINATE 50 MG TABER PO SCH (21:00)
[2018-01-07] MEDS ORDERED: RESTASIS 0.05% OP SCH (21:00)
[2018-01-07] MEDS ORDERED: NON-FORMULARY ITEM (Apixaban (Eliquis) 5 MG) PO SCH (21:00)
[2018-01-07] MEDS ORDERED: EYE EMULSION OP SCH (21:00)
[2018-01-07] MEDS: FAMOTIDINE 20 MG TAB PO SCH (21:11)
[2018-01-07] MEDS: TAMSULOSIN 0.4 MG CAP PO SCH (21:12)
[2018-01-07] MEDS: APIXABAN 2.5 MG TAB PO SCH (21:24)
--- NOTE | 2018-01-07 21:25 | NUR ---
VITAL SIGNS TAKEN AND SCHEDULED MEDICATION GIVEN. PT TOLERATED WELL. NO S/S OF RESPIRATORY DISTRESS OR DISCOMFORT AT THIS TIME. WILL CONTINUE TO MONITOR.
--- NOTE | 2018-01-07 23:25 | NUR ---
PT HAD PAIN ON HIS BACK AND MEDICATED WITH NORCO PRN. WILL CONTINUE TO MONITOR. VITAL SIGNS TAKEN AND STABLE.
[2018-01-08] VITALS: BP 141/61
--- NOTE | 2018-01-08 02:00 | NUR ---
PT CONTINUES TO SLEEP. WILL CONTINUE TO MONITOR.
[2018-01-08] MEDS: NACL 0.9% 1,000 ML IV SCH ×2 (02:50→14:01)
[2018-01-08 04:00] VITALS: BP 141/68
--- NOTE | 2018-01-08 04:00 | NUR ---
PT CONTINUES TO SLEEP. NO S/S OF RESPIRATORY DISTRESS OR DISCOMFORT AT THIS TIME. WILL CONTINUE TO MONITOR.
[2018-01-08] MEDS: ALBUTEROL 0.083% 2.5 MG/3 ML NEBU IH PRN ×3 (04:17→19:06)
[2018-01-08] MEDS: PIPER/TAZO 3.375GM/D5W PREMIX 50 ML IV SCH ×3 (05:06→20:13)
--- NOTE | 2018-01-08 05:10 | NUR ---
SCHEDULED MEDICATION GIVEN. TOLERATED WELL. PT CONTINUES TO SLEEP. NO S/S OF RESPIRATORY DISTRESS OR DISCOMFORT NOTE AT THIS TIME. WILL CONTINUE TO MONITOR.
[2018-01-08 06:47] LABS: BASOPHILS % (AUTO) 0.1 % (0.0-2.0); EOSINOPHILS % (AUTO) 0.4 % (0.0-4.0); HEMATOCRIT 26.8 % (36-52); LYMPHOCYTES # (AUTO) 1.9 K/uL (2.0-11.5); LYMPHOCYTES % (AUTO) 20.3 % (20.5-51.1); MEAN CORPUSCULAR HEMOGLOBIN 31 pg (27-31); MEAN CORPUSCULAR HGB CONC 34 g/dL (33-37); MEAN CORPUSCULAR VOLUME 91.8 fL (80-94); MONOCYTES # (AUTO) 0.6 K/uL (0.8-1.0); MONOCYTES % (AUTO) 6.2 % (1.7-9.3); NEUTROPHILS # (AUTO) 6.9 K/uL (1.8-7.7); PLATELET COUNT (AUTO) 185 K/uL (140-450); RED BLOOD CELL COUNT(AUTO) 2.92 MIL/uL (4.20-6.10); RED CELL DISTRIBUTION WIDTH 18.6 % (11.6-13.7); WHITE BLOOD COUNT (AUTO) 9.5 K/uL (4.8-10.8)
--- NOTE | 2018-01-08 07:17 | NUR ---
ENDORSED PT CARE TO DAY SHIFT NURSE YOSEPH FOR CONTINUITY OF CARE.
--- NOTE | 2018-01-08 07:30 | NUR ---
PT REPORT RECEIVED FORM VIDEO ENGINEER NURSE. PT IS AAOX3, PT RESPIRATIONS EVEN, UNLABORED, ON 3L/MIN VIA NC. IV SITE TO THE RIGHT AC, SL. IV CATH 22G TO LEFT FA, INTACT, PATENT, AND INFUSING WELL. ABDOMEN SOFT, NON-DISTENDED. DENIES PAIN. CALL LIGHT WITHIN REACH. SAFETY MEASURES IN PLACE, WILL CONTINUE TO MONITOR.
[2018-01-08 08:00] VITALS: BP 124/55
[2018-01-08] MEDS: FAMOTIDINE 20 MG TAB PO SCH ×2 (09:08→20:17)
[2018-01-08] MEDS: DILTIAZEM 120 MG CAPER PO SCH (09:08)
[2018-01-08] MEDS: METOPROLOL SUCCINATE 50 MG TABER PO SCH (09:08)
[2018-01-08] MEDS: FUROSEMIDE 40 MG TAB PO SCH (09:08)
[2018-01-08] MEDS: BISACODYL 5 MG TABEC PO SCH ×3 (09:09→16:35)
[2018-01-08] MEDS: OXYBUTYNIN 5 MG TAB PO SCH (09:09)
[2018-01-08] MEDS: APIXABAN 2.5 MG TAB PO SCH ×2 (09:12→20:16)
[2018-01-08 11:01] LABS: ANION GAP 12.8 (8-16); CARBON DIOXIDE 23.9 mmol/L (21-32); CHLORIDE 107 mmol/L (98-107); CREATININE 1.2 mg/dL (0.7-1.3); GLUCOSE 90 mg/dL (74-106); POTASSIUM 3.7 mmol/L (3.5-5.1); SODIUM SERUM 140 mmol/L (136-145); UREA NITROGEN, BLOOD 29 mg/dL (7-18)
[2018-01-08 12:00] VITALS: BP 121/51
[2018-01-08] MEDS ORDERED: MAGNESIUM CITRATE 300 ML BTL PO SCH ×2 (13:00→19:30)
--- NOTE | 2018-01-08 13:20 | NUR ---
FAXED CONCURRENT REVIEW TO [facility] [phone] PHONE DORIS [phone]
[2018-01-08] MEDS: SODIUM FERRIC GLUCONATE 125 MG in NACL 0.9% 100 ML IV SCH (13:34)
--- NOTE | 2018-01-08 13:35 | NUR ---
PT IS BACK TO THE FLOOR. ESOPHAGRAM DONE. PLACE 3L O2 NC BACK. NO S/S OF ACUTE DISTRESS.
--- NOTE | 2018-01-08 13:38 | NUR ---
BATTALION CHIEF NOTE [id number] Modified Barium Swallow Study completed. Impression: Flash penetration of thin liquid via initial self-administered cup sip (entry into laryngeal vestibule, but immediately cleared) x1. No further aspiration/penetration noted on self-administrated, consecutive cup sips of thin liquids or puree textures. Min residues remained at BOT, posterior pharyngeal wall, valleculae, and pyriforms, however cleared w/reflexive swallow. Recommend: -Puree texture + thin liquids for all PO intake, NO STRAWS -Upright at 90 during and 20 min after intake, tray set up assistance as needed. -Small bites/sips, slow rate, alternate bites/sips. -Cue for second swallow after 2-3 bites/sips. -Further BATTALION CHIEF intervention not indicated. G8996: CI G8997: CI G8998: CI Swallow NOMS 3
--- NOTE | 2018-01-08 13:44 | NUR ---
01/08/18 RD INITIAL ASSESSMENT COMPLETED PLEASE REFER TO NUTRITION ASSESSMENT UNDER CARE ACTIVITY FOR ESTIMATED NUTRITIONAL NEEDS. 1. CONTINUE CLEAR LIQUID DIET MEDICALLY NECESSARY. 2. WHEN PT ADVANCED TO PO DIET, RECOMMEND MECHANICAL SOFT, CARDIAC, AND RENAL DIET. 3. RD TO FOLLOW-UP 2-3 DAYS, HIGH RISK NADINE MARTIN RD
--- NOTE | 2018-01-08 14:10 | NUR ---
HELPED PT AMB TO RESTROOM. CHANGED PT'S GOWN. AND BED LINENS.
--- NOTE | 2018-01-08 15:00 | NUR ---
REPORT GIVEN TO JOSE JUAN REYES. PT IN STABLE CONDITION.
[2018-01-08 16:00] VITALS: BP 109/53
--- NOTE | 2018-01-08 16:10 | NUR ---
PATIENT AWAKE, ALERT. RESPIRATION EVEN, UNLABOR ON 2L NC. DENIED PAIN, SOB AT THIS TIME. VS IS STABLE. NO DISTRESS NOTED. CALL LIGHT WITHIN REACH
[2018-01-08] MEDS: MUPIROCIN 2% OINT 22 GM TUBE TP SCH (16:36)
[2018-01-08] MEDS: FERROUS SULFATE 325 MG TABEC PO SCH (16:36)
[2018-01-08] MEDS: CHLORHEXADINE GLUC 2% CLOTH TP SCH (16:37)
--- NOTE | 2018-01-08 18:53 | NUR ---
PATIENT AWAKE, ALERT. RESPIRATION EVEN, UNLABOR ON 2L NC. ASSISTED PATIENT TO THE BATHROOM, STEADY GAIT. NO DISTRESS NOTED AT THIS TIME. CALL LIGHT WITHIN REACH
--- NOTE | 2018-01-08 19:18 | NUR ---
ENDORSEMENT GIVEN TO THE CARD FEEDER NURSE. PATIENT IS STABLE AT THIS TIME
--- NOTE | 2018-01-08 19:30 | NUR ---
RECEIVED REPORT FROM DAY SHIFT, PATIENT WALKED TO THE BATHROOM AND RESTING IN BED NOW. NO S/S OF DISTRESS NOTED, RESPIRATION EVEN AND UNLABORED, ON NC 2L. IV PATENT AND INTACT, INFUSING NS AT 80ML/HR. EDUCATED ON THE BOWEL PREPARATION FOR COLONOSCOPY, PATIENT VERBALIZED UNDERSTANDING. CALL LIGHT WITHIN REACH, SAFETY MEASURE ENSURED, WILL CONTINUE TO MONITOR.
[2018-01-08 20:00] VITALS: BP 121/63
[2018-01-08] MEDS: EYE EMULSION OP SCH (20:14)
[2018-01-08] MEDS: RESTASIS 0.05% OP SCH (20:14)
[2018-01-08] MEDS: TAMSULOSIN 0.4 MG CAP PO SCH (20:16)
--- NOTE | 2018-01-08 20:26 | NUR ---
DUE MEDICATION GIVEN, PATIENT TOLERATED WELL. NO S/S OF DISTRESS NOTED, RESPIRATION EVEN AND UNLABORED, CALL LIGHT WITHIN REACH, SAFETY MEASURE ENSURED, WILL CONTINUE TO MONITOR.
--- NOTE | 2018-01-08 22:30 | NUR ---
PATIENT IS SLEEPING, RESPIRATION EVEN AND UNLABORED, NO S/S OF DISTRESS NOTED, CALL LIGHT WITHIN REACH, SAFETY MEASURE ENSURED, WILL CONTINUE TO MONITOR.
[2018-01-09] VITALS: BP 112/47
[2018-01-09] MEDS: ALBUTEROL 0.083% 2.5 MG/3 ML NEBU IH PRN ×2 (00:05→06:57)
--- NOTE | 2018-01-09 00:05 | NUR ---
PATIENT WAS SLEEPING, EASY TO AROUSE, NO S/S OF DISTRESS NOTED, ON NC O2 3L. O2SAT 83%, PATIENT STATED," I AM OKAY." CALLED RT, RT IS GIVING BREATHING TREATMENT AT THE BEDSIDE. CALL LIGHT WITHIN REACH, SAFETY MEASURE ENSURED, WILL CONTINUE TO MONITOR.
--- NOTE | 2018-01-09 00:24 | NUR ---
PLACED PT ON AN OXYMIZER AT 5L WILL MONITOR SATS
--- NOTE | 2018-01-09 00:46 | NUR ---
O2SAT 91%, PATIENT IS SLEEPING. RESPIRATION EVEN AND UNLABORED, ON OXYMIZER 4L. WILL CONTINUE TO MONITOR. Addendum: 01/09/18 at 0049 by Gus Dior RN 5L
--- NOTE | 2018-01-09 02:33 | NUR ---
PATIENT IS SLEEPING, RESPIRATION EVEN AND UNLABORED, ON OXYMIZER 5L. CALL LIGHT WITHIN REACH, SAFETY MEASURE ENSURED, WILL CONTINUE TO MONITOR.
[2018-01-09 04:00] VITALS: BP 121/54
--- NOTE | 2018-01-09 04:03 | NUR ---
VITAL SIGNS STABLE, NO S/S OF DISTRESS NOTED, RESPIRATION EVEN AND UNLABORED, ON OXYMIZER 5L. CALL LIGHT WITHIN REACH, SAFETY MEASURE ENSURED, WILL CONTINUE TO MONITOR.
[2018-01-09] MEDS: NACL 0.9% 1,000 ML IV SCH (04:13)
[2018-01-09] MEDS: PIPER/TAZO 3.375GM/D5W PREMIX 50 ML IV SCH ×2 (04:18→12:17)
--- NOTE | 2018-01-09 06:04 | NUR ---
NO CHANGE IN CONDITION, KEPT NPO SINCE MIDNIGHT. PATIENT IS SLEEPING, EASY TO AROUSE. RESPIRATION EVEN AND UNLABORED, ON OXYMIZER 5L, O2SAT 91%. CALL LIGHT WITHIN REACH, SAFETY MEASURE ENSURED, WILL CONTINUE TO MONITOR.
[2018-01-09 07:09] LABS: BASOPHILS % (AUTO) 0.2 % (0.0-2.0); EOSINOPHILS # (AUTO) 0.1 K/uL (0-0.4); EOSINOPHILS % (AUTO) 1.4 % (0.0-4.0); HEMATOCRIT 26.5 % (36-52); HEMOGLOBIN 8.8 g/dL (12.0-18.0); LYMPHOCYTES # (AUTO) 0.9 K/uL (2.0-11.5); LYMPHOCYTES % (AUTO) 13.7 % (20.5-51.1); MEAN CORPUSCULAR HEMOGLOBIN 31 pg (27-31); MEAN CORPUSCULAR HGB CONC 33 g/dL (33-37); MEAN CORPUSCULAR VOLUME 91.9 fL (80-94); MONOCYTES # (AUTO) 0.6 K/uL (0.8-1.0); MONOCYTES % (AUTO) 8.3 % (1.7-9.3); NEUTROPHILS # (AUTO) 5.2 K/uL (1.8-7.7); NEUTROPHILS % (AUTO) 76.4 % (42.2-75.2); PLATELET COUNT (AUTO) 190 K/uL (140-450); RED BLOOD CELL COUNT(AUTO) 2.89 MIL/uL (4.20-6.10); RED CELL DISTRIBUTION WIDTH 17.9 % (11.6-13.7); WHITE BLOOD COUNT (AUTO) 6.9 K/uL (4.8-10.8)
[2018-01-09 07:19] LABS: ANION GAP 9.9 (8-16); CARBON DIOXIDE 25.1 mmol/L (21-32); CHLORIDE 111 mmol/L (98-107); CREATININE 1.2 mg/dL (0.7-1.3); GLUCOSE 84 mg/dL (74-106); SODIUM SERUM 143 mmol/L (136-145); UREA NITROGEN, BLOOD 18 mg/dL (7-18)
--- NOTE | 2018-01-09 07:33 | NUR ---
ENDORSED PLAN OF CARE TO DAY SHIFT, PATIENT IS IN STABLE CONDITION.
--- NOTE | 2018-01-09 07:34 | NUR ---
RECEIVED REPORT FROM THE DEVELOPER EVANGELIST NURSE AT BEDSIDE FOR CONTINUITY OF CARE. PT IS AWAKE AND ORIENTED. BACK IN BED AFTER USING THE BATHROOM. INTRODUCED MYSELF AND UPDATE THE BOARD. PT IS AMBULATORY, STEADY GAIT. PT IS SCHEDULED FOR A COLONOSCOPY THIS AM. PT IS NPO SINCE MIDNIGHT. PER RN, PT STOOLS ARE WATERY, MOSTLY CLEAR. PT HAS AN OXIMIZER ON AT 6L. R/T WAS JUST HERE. PT HAS A R HIP OPEN BLISTER GLADYS. IV ON L FA 22G AT NS AT 80ML. WILL CONTINUE TO MONITOR PT.
[2018-01-09 08:00] VITALS: BP 107/40
[2018-01-09] MEDS ORDERED: fentaNYL 0.05 MG/ML VIAL ONE (08:06)
[2018-01-09] MEDS ORDERED: diphenhydrAMINE 50 MG/ML VIAL ONE (08:07)
[2018-01-09] MEDS ORDERED: MIDAZOLAM 2 MG/2 ML VIAL ONE (08:07)
--- NOTE | 2018-01-09 08:15 | NUR ---
OR NURSES HERE TO TAKE PT FOR HIS COLONOSCOPY. PT IN STABLE CONDITION.
[2018-01-09] MEDS ORDERED: fentaNYL 0.05 MG/ML VIAL IVP ONE ×2 (09:00→09:05)
--- NOTE | 2018-01-09 09:15 | NUR ---
PT ARRIVED ON THE UNIT S/P COLONOSCOPY. PER O/R RN, PT HAS DIVERTICULOSIS. NO BIOPSIES WERE DONE. WANTED TO DO THE EGD BUT UNABLE TO DO D/T HIS RESPIRATORY ISSUES. PT IS AWAKE AND ORIENTED. NO SIGNS OF DISTRESS. OXIMIZER STILL ON AT 6L. V/S WITHIN NORMAL RANGE. WILL ORDER LATE TRAY SO HE CAN EAT. WILL CONTINUE TO MONITOR PT.
[2018-01-09] MEDS: METOPROLOL SUCCINATE 50 MG TABER PO SCH (09:32)
[2018-01-09] MEDS: OXYBUTYNIN 5 MG TAB PO SCH (09:32)
[2018-01-09] MEDS: DILTIAZEM 120 MG CAPER PO SCH (09:32)
[2018-01-09] MEDS: FUROSEMIDE 40 MG TAB PO SCH (09:33)
[2018-01-09] MEDS: FAMOTIDINE 20 MG TAB PO SCH (09:33)
[2018-01-09] MEDS: FERROUS SULFATE 325 MG TABEC PO SCH (09:33)
[2018-01-09] MEDS: APIXABAN 2.5 MG TAB PO SCH (09:35)
[2018-01-09] MEDS: RESTASIS 0.05% OP SCH (09:36)
[2018-01-09] MEDS: EYE EMULSION OP SCH (09:36)
--- NOTE | 2018-01-09 09:40 | NUR ---
ADMINISTERED MORNING MEDS. PT TOLERATED WELL. REQUESTED A CUP OF COFFEE. COFFEE GIVEN.
--- NOTE | 2018-01-09 11:30 | NUR ---
DECREASED FI02 TO 2LPM NC SPO2 .93 Addendum: 01/09/18 at 1513 by Marques Hunter RT entry error decreased to 4lpm oxymizer spo2 .93
[2018-01-09 12:00] VITALS: BP 117/57
[2018-01-09] MEDS: SODIUM FERRIC GLUCONATE 125 MG in NACL 0.9% 100 ML IV SCH (12:17)
[2018-01-09] MEDS: VANCOMYCIN 750 MG in DEXTROSE 5% 250 ML IV SCH (12:18)
--- NOTE | 2018-01-09 12:21 | NUR ---
PT SITTING ON SIDE OF BED. LUNCH TRAY IN FRONT OF HIM. ADMINISTERED FERRIC GLUCONATE AND ZOSYN. WILL BE BACK IN ONE HOUR TO ADMINISTER VANCO.
[2018-01-09] MEDS ORDERED: LEVO750T2 PO (13:00)
[2018-01-09] MEDS ORDERED: AMOX-999 PO (13:00)
[2018-01-09] MEDS ORDERED: SPIMDI INH (13:02)
--- NOTE | 2018-01-09 15:10 | NUR ---
PT RESTING COMFORTABLY. NO SIGNS OF DISTRESS. VANCO IS ALMOST FINISHED. ONCE THE SON ARRIVES, WILL GO OVER D/C INSTRUCTIONS. THEN, PT CAN LEAVE.
--- NOTE | 2018-01-09 15:13 | NUR ---
decreased fio2 t0 2lpm oxymizer spo2 ,94
[2018-01-09 16:00] VITALS: BP 113/49
--- NOTE | 2018-01-09 16:15 | NUR ---
DC INSTRUCTIONS GIVEN TO PT AND SON. PT AND SON VERBALIZED UNDERSTANDING. REMOVED IV, CANNULA INTACT. NO BLEEDING NOTED. REMOVED ID BANDS AND TELE MONITOR. SON BROUGHT CLOTHES TO CHANGE INTO. GATHERED ALL PERSONAL BELONGINGS. FERMENTER HELPER HELPED ASSIST PT TO GET DRESSED. SON TOOK ALL PERSONAL BELONGINGS TO THE CAR. WILL WHEELCHAIR PT OUT WHEN READY.
--- NOTE | 2018-01-09 16:30 | NUR ---
PT WHEELED OUT IN A WHEELCHAIR TO THE FRONT OF THE HOSPITAL WHERE SON IS WAITING IN THE CAR. PT HAS OXIMIZER ON 3L. PT IS IN STABLE CONDITION.
== END 2018-01-09 16:30 | disposition home or self-care (01) | DRG 208 ==
LOC: MED 10:40 → MERGE 13:27 → MTU 13:27
PROVIDERS: ADMIT Hospitalist; ATTEND Hospitalist
PROC: 30233N1 Transfusion of Nonautologous Red Blood Cells into Peripheral Vein, Percutaneous Approach (ICD-10-PCS; principal; 2018-01-07)
PROC: 5A1935Z Respiratory Ventilation, Less than 24 Consecutive Hours (ICD-10-PCS; 2018-01-09)
PROC: 0BH17EZ Insertion of Endotracheal Airway into Trachea, Via Natural or Artificial Opening (ICD-10-PCS; 2018-01-09)
PROC: 0DJD8ZZ Inspection of Lower Intestinal Tract, Via Natural or Artificial Opening Endoscopic (ICD-10-PCS; 2018-01-09)
DX: J18.9 Pneumonia, unspecified organism (principal); N17.9 Acute kidney failure, unspecified; J96.10 Chronic respiratory failure, unspecified whether with hypoxia or hypercapnia; K57.31 Diverticulosis of large intestine without perforation or abscess with bleeding; J44.0 Chronic obstructive pulmonary disease with (acute) lower respiratory infection; I48.0 Paroxysmal atrial fibrillation; I13.0 Hypertensive heart and chronic kidney disease with heart failure and stage 1 through stage 4 chronic kidney disease, or unspecified chronic kidney disease; J44.1 Chronic obstructive pulmonary disease with (acute) exacerbation; I50.9 Heart failure, unspecified; I48.2 Chronic atrial fibrillation; R13.10 Dysphagia, unspecified; D50.0 Iron deficiency anemia secondary to blood loss (chronic); N18.9 Chronic kidney disease, unspecified; E03.9 Hypothyroidism, unspecified; I25.10 Atherosclerotic heart disease of native coronary artery without angina pectoris; N40.0 Benign prostatic hyperplasia without lower urinary tract symptoms; Z79.01 Long term (current) use of anticoagulants; Z87.891 Personal history of nicotine dependence; Z99.81 Dependence on supplemental oxygen; Z88.5 Allergy status to narcotic agent; Z95.0 Presence of cardiac pacemaker; Z79.899 Other long term (current) drug therapy
CPT/HCPCS: 36415; 70370; 71045; 80048; 80053; 80202; 81001; 82150; 82272; 82550; 82553; 83036; 83540; 83605; 83690; 83735; 83880; 84100; 84436; 84439; 84443; 84479; 84484; 85025; 85610; 85730; 86886; 86900; 86901; 86920; 87040; 87081; 92611; 93005; 94640; 96361; 96365; 96375; 99285; J1200; J2250; J2405; J2543; J2916; J2930; J3010; J3370; J7030; J7060; J7613; J7620; P9016

== ENCOUNTER 2018-01-15 21:07 | Inpatient (IN) | payer OTHER ==
[~2018-01-15] VITALS: Ht 172.7 cm; Wt 63.0 kg
[~2018-01-15 21:07] MED LIST changes: +DILT-135; +FLONAS NS; -FURO-572 PO; -METO25TA PO; +METO50TE2 PO; +SPIMDI INH
--- NOTE | 2018-01-15 21:07 | NUR ---
PT ABDELRAHMAN ALS. TAKEN TO BED 12
[2018-01-15 21:09] VITALS: BP 124/106
--- NOTE | 2018-01-15 21:10 | NUR ---
PATIENT IS A 87 Y/O MALE BIB ALS WHO PRESENTS TO THE ED C/O SOB. PT STATES THAT HE WAS PREV ADMITTED FOR PNEUMONIA X1 WEEK, FELT SOB X1 HOUR AT HOME. PT REPORTS 6/10 ACHING CHEST PAIN THAT RADIATES TO THE BACK. NOTED CRACKLES IN LL BASE, 92% ON 4L NC, NON-PRODUCTIVE COUGH NOTED. PT DENIES CP, N/V/D. PT AAOX4, RR EVEN/UNLABORED. PT REPOSITIONED FOR COMFORT, BED IN LOWEST POSITION. ER MD DR. VELASQUEZ NOTIFIED. WILL CONTINUE TO MONITOR. L AC 20G, ESTABLISHED BY EMS. Addendum: 01/16/18 at 0022 by MEDDCV PATIENT IS A 87 Y/O MALE BIB ALS WHO PRESENTS TO THE ED C/O SOB. PT STATES THAT HE WAS PREV ADMITTED FOR PNEUMONIA X1 WEEK, FELT SOB X1 HOUR AT HOME. PT REPORTS 6/10 ACHING CHEST PAIN THAT RADIATES TO THE BACK. L PACEMAKER NOTED. NOTED CRACKLES IN LL BASE, 92% ON 4L NC, NON-PRODUCTIVE COUGH NOTED. PT DENIES CP, N/V/D. PT AAOX4, RR EVEN/UNLABORED. PT REPOSITIONED FOR COMFORT, BED IN LOWEST POSITION. ER MD DR. VELASQUEZ NOTIFIED. WILL CONTINUE TO MONITOR. L AC 20G, ESTABLISHED BY EMS.
--- NOTE | 2018-01-15 21:11 | NUR ---
ER MD DONOHUE MADE AWARE OF PT STATUS
[2018-01-15] MEDS ORDERED: MAG SULF 2000 MG/WATER PREMIX 50 ML IV ONE (21:15)
[2018-01-15] MEDS ORDERED: methylPREDNISolone SS 125 MG/2 ML VIAL IVP ONE (21:15)
[2018-01-15] MEDS ORDERED: IPRATROPIUM 0.02% 0.5 MG/2.5 ML NEBU INH ONE (21:15)
[2018-01-15] MEDS ORDERED: ALBUTEROL 0.083% 2.5 MG/3 ML NEBU INH ONE (21:15)
--- NOTE | 2018-01-15 21:26 | NUR ---
Respiratory Therapist at bedside for respiratory intervention.
--- NOTE | 2018-01-15 21:27 | NUR ---
Dr. Aviles evaluating patient at bedside.
[2018-01-15 21:45] LABS: BASOPHILS # (AUTO) 0.1 K/uL (0.00-0.22); BASOPHILS % (AUTO) 0.5 % (0.0-2.0); EOSINOPHILS # (AUTO) 0.2 K/uL (0-0.4); HEMATOCRIT 22.6 % (36-52); HEMOGLOBIN 7.3 g/dL (12.0-18.0); LYMPHOCYTES # (AUTO) 1.9 K/uL (2.0-11.5); LYMPHOCYTES % (AUTO) 16.7 % (20.5-51.1); MEAN CORPUSCULAR HEMOGLOBIN 30 pg (27-31); MEAN CORPUSCULAR HGB CONC 32 g/dL (33-37); MEAN CORPUSCULAR VOLUME 92.7 fL (80-94); MONOCYTES # (AUTO) 1.5 K/uL (0.8-1.0); MONOCYTES % (AUTO) 13.5 % (1.7-9.3); NEUTROPHILS # (AUTO) 7.7 K/uL (1.8-7.7); NEUTROPHILS % (AUTO) 67.3 % (42.2-75.2); PLATELET COUNT (AUTO) 229 K/uL (140-450); RED BLOOD CELL COUNT(AUTO) 2.44 MIL/uL (4.20-6.10); RED CELL DISTRIBUTION WIDTH 16.7 % (11.6-13.7); WHITE BLOOD COUNT (AUTO) 11.4 K/uL (4.8-10.8)
[2018-01-15 22:02] LABS: ALBUMIN 2.3 g/dL (3.4-5.0); ANION GAP 12.4 (8-16); ASPARTATE AMINOTRANSFERASE 11 U/L (15-37); CARBON DIOXIDE 25.6 mmol/L (21-32); CHLORIDE 101 mmol/L (98-107); GLUCOSE 125 mg/dL (74-106); SODIUM SERUM 136 mmol/L (136-145); TOTAL BILIRUBIN 0.4 mg/dL (0.0-1.0); UREA NITROGEN, BLOOD 57 mg/dL (7-18)
[2018-01-15] MEDS ORDERED: POTASSIUM CHLORIDE 10 MEQ TABER PO ONE (22:05)
[2018-01-15 22:21] LABS: PROTHROMBIN TIME 12.5 secs (10.8-13.4)
--- NOTE | 2018-01-15 22:45 | NUR ---
PATIENT RESTING AT THIS TIME. NO SIGNS OF DISTRESS.
--- NOTE | 2018-01-15 23:20 | NUR ---
PT TAKEN TO CT
[2018-01-15] MEDS ORDERED: ALBUTEROL 0.083% 2.5 MG/3 ML NEBU INH PRN (23:25)
--- NOTE | 2018-01-15 23:44 | NUR ---
PT STILL IN CT. UNABLE TO BRING TO MST.
--- NOTE | 2018-01-15 23:45 | NUR ---
PT RETURN FROM CT
--- NOTE | 2018-01-15 23:56 | NUR ---
Patient will be admitted to care of DR. FLORENTINO. Admited to TELE. Will go to room 113. Belongings list completed. Report to MAXIM REYES.
[2018-01-16] VITALS: BP 110/52
[2018-01-16] MEDS ORDERED: DIGOXIN 0.25 MG/ML AMP IV SCH
--- NOTE | 2018-01-16 | NUR ---
RECEIVED PT FROM ER VIA DEISY. AAOX4. NO RESP DISTRESS NOTED. ON O2 AT 2L/MIN VIA NC. IV TO LEFT AC#20 AND RIGHT FA #20, PATENT AND INTACT. NO C/O PAIN. INITIAL ASSESSMENT DONE. ORIENTED PT TO ROOM. DISCUSSED PLAN OF CARE, PT VERBALIZED UNDERSTANDING. SAFETY PRECAUTION IN PLACE. CALL LIGHT WITHIN REACH.
--- NOTE | 2018-01-16 00:40 | NUR ---
[place] FLORENTINO. DR. ARAMBULA APPRENTICE CARPENTER. MADE AWARE THAT ER DOCTOR ORDERED BLOOD TRANSFUSION. PER DR. ARAMBULA, WILL DO THE BLOOD TRANSFUSION. Addendum: 01/16/18 at 0733 by Xenia Elmore RN DR. ARAMBULA AWARE OF HGB LEVEL 7.3
[2018-01-16] MEDS: ALBUTEROL 0.083% 2.5 MG/3 ML NEBU INH SCH ×4 (01:29→19:04)
[2018-01-16] MEDS: IPRATROPIUM 0.02% 0.5 MG/2.5 ML NEBU INH SCH ×4 (01:29→19:04)
--- NOTE | 2018-01-16 01:40 | NUR ---
STARTED FIRST BAG OF PRBC FOR BLOOD TRANSFUSION.
--- NOTE | 2018-01-16 01:47 | NUR ---
SCHEDULED BREATHING TX ADMINISTERED. TOLERATED TX WELL, NO ADVERSE SIDE EFFECTS. PATIENT ON 2L NC, O2 SAT 97%. NO RESPIRATORY DISTRESS NOTED AT THIS TIME. WILL CONTINUE TO MONITOR. Addendum: 01/16/18 at 0245 by Berta Amezquita RT SPOKE WITH DR. ARAMBULA OVER PHONE, STATED TO MAINTAIN O2 SATURATION >90%
--- NOTE | 2018-01-16 01:55 | NUR ---
BLOOD TRANSFUSION ONGOING. V/S TAKEN, WNL. NO ADVERSE REACTION NOTED. NO C/O SOB OR PAIN.
--- NOTE | 2018-01-16 02:08 | NUR ---
SPOKE WITH PT ACCOMPANIED BY OTHER NURSE, PT WANTS TO BE FULL CODE. MADE AWARE.
--- NOTE | 2018-01-16 03:00 | NUR ---
PT TOLERATING BLOOD TRANSFUSION WELL. NO C/O PAIN. NO RESP DISTRESS NOTED.
--- NOTE | 2018-01-16 03:20 | NUR ---
PT STATED HE FEELS BETTER. NO C/O NAUSEA. NO C/O PAIN OR SOB NOTED. Addendum: 01/16/18 at 0647 by Xenia Elmore RN WRONG TIME
[2018-01-16] MEDS: ONDANSETRON 4 MG/2 ML VIAL IVP PRN ×2 (03:47→09:49)
--- NOTE | 2018-01-16 03:50 | NUR ---
PT C/O NAUSEA. ZOFRAN 4MG IVP GIVEN. NO RESP DISTRESS NOTED.
[2018-01-16 04:00] VITALS: BP 120/50
--- NOTE | 2018-01-16 04:20 | NUR ---
PT STATED HE FEELS BETTER. NO C/O NAUSEA. NO C/O PAIN OR SOB NOTED.
--- NOTE | 2018-01-16 04:30 | NUR ---
PT ASKED FOR SNACK. SNACK PROVIDED. NO DISTRESS NOTED.
--- NOTE | 2018-01-16 04:55 | NUR ---
FIRST BAG OF PRBC BLOOD TRANSFUSION DONE. NO ADVERSE REACTION NOTED. NO DISTRESS NOTED.
[2018-01-16] MEDS: DILTIAZEM 60 MG TAB PO SCH ×3 (05:00→21:00)
--- NOTE | 2018-01-16 05:45 | NUR ---
STARTED SECOND BAG OF PRBC FOR BLOOD TRANSFUSION. V/S WNL.
[2018-01-16] MEDS ORDERED: methylPREDNISolone SS 40 MG in WATER STERILE 1 ML IV SCH (06:00)
--- NOTE | 2018-01-16 06:00 | NUR ---
PT TOLERATING BLOOD TRANSFUSION WELL. VS WNL. NO C/O PAIN. NO RESP DISTRESS NOTED. NO C/O NAUSEA OR VOMITING.
[2018-01-16] MEDS ORDERED: methylPREDNISolone SS 40 MG/ML VIAL ONE ×2 (06:04→12:28)
--- NOTE | 2018-01-16 06:26 | NUR ---
PATIENT HAS BEEN SCREENED AND CATEGORIZED HIGH NUTRITION RISK. PATIENT WILL BE SEEN WITHIN 1-2 DAYS OF ADMISSION. 01/15/18-01/16/18 IRISH RAMSEY MS, RDN
--- NOTE | 2018-01-16 07:28 | NUR ---
COLLECTION FOR STOOL SAMPLE FOR OCCULT BLOOD ENDORSED TO DAY SHIFT NURSE.
--- NOTE | 2018-01-16 07:30 | NUR ---
BLOOD TRANSFUSION STILL INFUSING. NO C/O PAIN OR DISCOMFORT. ENDORSED PT TO DAY SHIFT NURSE. PT IN STABLE CONDITION.
--- NOTE | 2018-01-16 07:55 | NUR ---
PATIENT AWAKE, ALERT. RESPIRATION EVEN, UNLABOR ON 3L NC. SKIN DRY AND WARM. IV PATENT AND INTACT. VS IS STABLE. PATIENT TOLERATING BLOOD TRANSFUSION WELL. DENIED PAIN, SOB, N/V AT THIS TIME. NO DISTRESS NOTED. PLAN OF CARE WAS DISCUSSED WITH PATIENT, BED AT LOW POSITION, SIDE RAILS UP. CALL LIGHT WITHIN REACH.
[2018-01-16 08:00] VITALS: BP 126/65
[2018-01-16] MEDS: FAMOTIDINE 20 MG TAB PO SCH (08:51)
[2018-01-16] MEDS: TAMSULOSIN 0.4 MG CAP PO SCH (08:51)
[2018-01-16] MEDS: FLUTICASONE NASAL 50 MCG/ACTUATION 16 GM BTL NS SCH (08:52)
[2018-01-16] MEDS: APIXABAN 2.5 MG TAB PO SCH ×2 (08:58→20:54)
[2018-01-16] MEDS ORDERED: OXYBUTYNIN 5 MG TAB PO SCH (09:00)
[2018-01-16] MEDS ORDERED: DILTIAZEM 120 MG CAPER PO SCH (09:00)
[2018-01-16] MEDS ORDERED: METOPROLOL 50 MG TAB PO SCH (09:00)
[2018-01-16] MEDS ORDERED: FUROSEMIDE 20 MG TAB PO SCH (09:00)
--- NOTE | 2018-01-16 09:34 | NUR ---
01/16/18 RD INITIAL ASSESSMENT COMPLETED PLEASE REFER TO NUTRITION ASSESSMENT UNDER CARE ACTIVITY FOR ESTIMATED NUTRITIONAL NEEDS. RD RECOMMENDATIONS: 1. CONTINUE ON CARDIAC DIET TOLERATED. 2. CONSIDER DOWNGRADING DIET TEXTURE DUE TO PT ENDENTULOUS, DOES NOT HAVE DENTURES. 3. RDN TO ADD HEALTH SHAKES WITH ALL MEALS TO HELP MEET ESTIMATED NEEDS. THIS WILL PROVIDE A TOTAL OF 900 KCAL AND 27 GM PROTEIN. 4. CONSULT RDN PRN. 5. RD WILL F/U 2-3 DAYS; HIGH RISK. IRISH RAMSEY MS, RDN
--- NOTE | 2018-01-16 09:45 | NUR ---
PATIENT HAD EMESIS X1, MODERATE AMOUNT. MED WAS GIVEN PER ORDER.
[2018-01-16 11:02] LABS: HEMATOCRIT 31.4 % (36-52); HEMOGLOBIN 10.4 g/dL (12.0-18.0); LYMPHOCYTES # (AUTO) 0.5 K/uL (2.0-11.5); LYMPHOCYTES % (AUTO) 7.8 % (20.5-51.1); MEAN CORPUSCULAR HEMOGLOBIN 31 pg (27-31); MEAN CORPUSCULAR HGB CONC 33 g/dL (33-37); MEAN CORPUSCULAR VOLUME 91.7 fL (80-94); MONOCYTES # (AUTO) 0.1 K/uL (0.8-1.0); NEUTROPHILS # (AUTO) 5.4 K/uL (1.8-7.7); NEUTROPHILS % (AUTO) 90.2 % (42.2-75.2); PLATELET COUNT (AUTO) 222 K/uL (140-450); RED BLOOD CELL COUNT(AUTO) 3.42 MIL/uL (4.20-6.10); RED CELL DISTRIBUTION WIDTH 15.4 % (11.6-13.7); WHITE BLOOD COUNT (AUTO) 5.9 K/uL (4.8-10.8)
[2018-01-16 11:28] LABS: ANION GAP 13.7 (8-16); CARBON DIOXIDE 24.9 mmol/L (21-32); CHLORIDE 101 mmol/L (98-107); CREATININE 1.9 mg/dL (0.7-1.3); GLUCOSE 212 mg/dL (74-106); POTASSIUM 3.6 mmol/L (3.5-5.1); SODIUM SERUM 136 mmol/L (136-145); UREA NITROGEN, BLOOD 60 mg/dL (7-18)
[2018-01-16 11:34] LABS: ALBUMIN 2.5 g/dL (3.4-5.0); ASPARTATE AMINOTRANSFERASE 12 U/L (15-37); MAGNESIUM 2.6 mg/dL (1.8-2.4); TOTAL BILIRUBIN 1.3 mg/dL (0.0-1.0)
[2018-01-16 12:00] VITALS: BP 121/74
--- NOTE | 2018-01-16 12:00 | NUR ---
PATIENT AWAKE, ALERT. RESPIRATION EVEN, UNLABOR ON 3L NC. DENIED PAIN, N/V AT THIS TIME. NO DISTRESS NOTED. FAMILY AT BEDSIDE. STOOL SAMPLE WAS COLLECTED AND SENT TO LAB PER ORDER. CALL LIGHT WITHIN REACH
[2018-01-16] MEDS ORDERED: methylPREDNISolone SS 40 MG/ML VIAL IVP SCH (12:30)
--- NOTE | 2018-01-16 12:47 | NUR ---
NO HHN GIVEN DUE TO PT VOMITING AND FAMILY MEMBER DID NOT WANT PT TO HAVE TX NOW ERIC MANZANO NOTIFIED
[2018-01-16] MEDS: ACETAMINOPHEN 325 MG TAB PO PRN (13:02)
[2018-01-16] MEDS ORDERED: guaiFENesin 20 MG/ML UDC PO PRN (13:30)
[2018-01-16] MEDS ORDERED: VANCOMYCIN PER PHARMACY MC PRN (13:40)
--- NOTE | 2018-01-16 14:30 | NUR ---
PATIENT WAS TRANSFERRED TO CT SCAN BY WHEELCHAIR. PATIENT IS STABLE AT THIS TIME.
[2018-01-16] MEDS: HYDROcodone/APAP 5/325 MG 1 TAB TAB PO PRN (14:52)
[2018-01-16] MEDS: NACL 0.9% 1,000 ML IV SCH (14:53)
[2018-01-16] MEDS ORDERED: VANCOMYCIN 1GM/DEXT 5% PREMIX 200 ML IV SCH ×2 (15:00→16:00)
[2018-01-16 16:00] VITALS: BP 115/57
--- NOTE | 2018-01-16 16:00 | NUR ---
PATIENT AWAKE, ALERT. RESPIRATION EVEN, UNLABOR ON ROOM AIR. VS IS STABLE. DENIED SOB, PAIN AT THIS TIME. NO DISTRESS NOTED. MED WAS GIVEN PER ORDER. CALL LIGHT WITHIN REACH
--- NOTE | 2018-01-16 17:00 | NUR ---
PATIENT APPEARED TO HAVE SHORTNESS OF BREATH, DESATURATING ON 3L NC, INCREASE O2 TO 4L VIA NC, AND CALLED RT TO PRN TREATMENT
--- NOTE | 2018-01-16 17:10 | NUR ---
INSTRUCTED PT ON GIVING A SPUTUM SAMPLE TOLD PT TO CALL NURSE WHEN HE HAD ONE
[2018-01-16] MEDS: methylPREDNISolone SS 40 MG/ML VIAL IVP SCH ×2 (17:54→23:56)
[2018-01-16] MEDS: PIPER/TAZO 2.25GM/D5W PREMIX 50 ML IV SCH ×2 (17:55→23:56)
--- NOTE | 2018-01-16 18:21 | NUR ---
PATIENT AWAKE, ALERT. EGD CONSENT WAS OBTAINED AT BEDSIDE, SIGNED BY PATIENT. PATIENT VERBALIZED UNDERSTANDING THE RISKS OF PROCEDURE.
--- NOTE | 2018-01-16 19:17 | NUR ---
RECEIVED PATIENT ON 3L NC. O2 SAT 94%. FAMILY AT BEDSIDE. SCHEDULED BREATHING TX ADMINISTERED. PATIENT TOLERATED TREATMENT WELL, NO ADVERSE SIDE EFFECTS. NO RESPIRATORY DISTRESS NOTED. WILL CONTINUE TO MONITOR.
--- NOTE | 2018-01-16 19:27 | NUR ---
ENDORSEMENT GIVEN TO THE DRILL OPERATOR NURSE. PATIENT IS STABLE AT THIS TIME
--- NOTE | 2018-01-16 19:30 | NUR ---
RECEIVED PT IN STABLE CONDITION FROM AM NURSE. AWAKE, ALERT AND ORIENTED X4. ON TELE MONITORING. NO C/O ANY DISCOMFORT NOR PAIN NOTED AT THIS TIME. FAMILY MEMBER AT BEDSIDE. HAS IVF INFUSING WELL ON THE LT AC #20. CLEAR AND PATENT. PLAN OF CARE DISCUSSED AND VERBALIZED UNDERSTANDING. BED ON LOWEST POSITION. CALL LIGHT AND URINAL PLACED WITHIN EASY REACH. WITH DRESSING ON RT HIP. NO DRAIN NOTED. ON CONTACT ISOLATION . WILL CONTINUE TO MONITOR.
[2018-01-16 20:00] VITALS: BP 98/45
[2018-01-16] MEDS ORDERED: MILD SOAP AND WATER TP PRN (20:20)
[2018-01-16] MEDS ORDERED: HYDRAGUARD CREAM TP PRN (20:20)
[2018-01-16] MEDS ORDERED: TAMSULOSIN 0.4 MG CAP PO SCH (21:00)
[2018-01-16] MEDS: METOPROLOL SUCCINATE 50 MG TABER PO SCH (21:00)
[2018-01-16] MEDS ORDERED: CYCLOSPORINE OP SCH (21:00)
--- NOTE | 2018-01-16 21:00 | NUR ---
PT AWAKE, BP LOW , HOLD BP MEDS. WILL CONTINUE TO MONITOR.
--- NOTE | 2018-01-16 23:30 | NUR ---
DR. PUENTES CALLED AND ASKED ABOUT PT CONDITION. AWARE ABOUT PT ON ZOSYN AND VANCOMYCIN THAT PHARMACY TO DOSE.
[2018-01-17] VITALS (12 sets, daily range): BP systolic 99–116; BP diastolic 45–93
--- NOTE | 2018-01-17 00:05 | NUR ---
INSTRUCTED PT TO BE NPO FROM THIS TIME. PT FOR EGD IN AM.
[2018-01-17] MEDS: MILD SOAP AND WATER TP SCH ×2 (01:00→12:41)
[2018-01-17] MEDS: HYDRAGUARD CREAM TP SCH ×2 (01:00→12:41)
[2018-01-17] MEDS: IPRATROPIUM 0.02% 0.5 MG/2.5 ML NEBU INH SCH ×4 (01:06→18:43)
[2018-01-17] MEDS: ALBUTEROL 0.083% 2.5 MG/3 ML NEBU INH SCH ×4 (01:07→18:43)
--- NOTE | 2018-01-17 01:23 | NUR ---
SCHEDULED BREATHING TX ADMINISTERED. TOLERATED TX WELL, NO ADVERSE SIDE EFFECTS. WILL CONTINUE TO MONITOR.
--- NOTE | 2018-01-17 02:00 | NUR ---
SLEEPING AT THIS TIME. NO S/SOF ANY DISTRESS NOTED.
--- NOTE | 2018-01-17 04:00 | NUR ---
AWAKE. VITAL SIGNS TAKEN. STABLE WITH O2 SAT 91% . NO DISTRESS NOR PAIN NOTED.
[2018-01-17] MEDS: DILTIAZEM 60 MG TAB PO SCH ×3 (05:00→21:00)
[2018-01-17] MEDS: PIPER/TAZO 2.25GM/D5W PREMIX 50 ML IV SCH ×3 (05:34→19:30)
[2018-01-17] MEDS: methylPREDNISolone SS 40 MG/ML VIAL IVP SCH ×3 (05:34→20:34)
--- NOTE | 2018-01-17 06:00 | NUR ---
PT HAS BEEN STABLE DURING THE NIGHT. NO SOB, RESPIRATORY DISTRESS NOTED.
[2018-01-17 06:43] LABS: HEMATOCRIT 26.8 % (36-52); HEMOGLOBIN 8.8 g/dL (12.0-18.0); MEAN CORPUSCULAR HEMOGLOBIN 31 pg (27-31); MEAN CORPUSCULAR HGB CONC 33 g/dL (33-37); MEAN CORPUSCULAR VOLUME 92.5 fL (80-94); PLATELET COUNT (AUTO) 202 K/uL (140-450); RED CELL DISTRIBUTION WIDTH 15.4 % (11.6-13.7); WHITE BLOOD COUNT (AUTO) 17.7 K/uL (4.8-10.8)
[2018-01-17 07:02] LABS: ALBUMIN 2.2 g/dL (3.4-5.0); ASPARTATE AMINOTRANSFERASE 12 U/L (15-37); CARBON DIOXIDE 22.8 mmol/L (21-32); CHLORIDE 105 mmol/L (98-107); CREATININE 1.7 mg/dL (0.7-1.3); GLUCOSE 185 mg/dL (74-106); POTASSIUM 3.8 mmol/L (3.5-5.1); SODIUM SERUM 139 mmol/L (136-145); TOTAL BILIRUBIN 0.7 mg/dL (0.0-1.0); UREA NITROGEN, BLOOD 57 mg/dL (7-18)
[2018-01-17 07:10] LABS: BASOPHILS % (MANUAL) 0 % (0-2); EOSINOPHILS % (MANUAL) 0 % (0-4); LYMPHOCYTES % (MANUAL) 4 % (20-46); MONOCYTES % (MANUAL) 2 % (5-12)
--- NOTE | 2018-01-17 07:25 | NUR ---
KEPT PT NPO FOR EGD THIS AM. ENDORSED PT IN STABLE CONDITION TO AM NURSE.
--- NOTE | 2018-01-17 07:26 | NUR ---
RECEIVED REPORT FROM CHLORINATOR NURSE. PATIENT LYING DOWN IN BED SLEEPING, AROUSABLE BY VOICE. NO DISTRESS NOTED. DENIES ANY PAIN AT THIS TIME. RESPIRATIONS EVEN, UNLABORED, ON O2 2L/MIN VIA NC. AAOX3, CALM, COOPERATIVE, SKIN COLOR APPROPRIATE TO ETHNICITY, WARM TO TOUCH. HAS RIGHT HIP OLD WOUND THAT IS HEALING AND LOOKS DRY AND BLACK, AND HAS PERINEAL/COCCYX REDNESS DUE TO INCONTINENT DERMATITIS. LUNGS DIMINISHED ON ALL LOBES. ABDOMEN SOFT, NON-DISTENDED. IV SITE INTACT, PATENT, AND INFUSING IVF PER ORDERS. REVIEWED PLAN OF CARE WITH PATIENT. PATIENT VERBALIZED UNDERSTANDING. SAFETY MEASURES IN PLACE, CALL LIGHT WITHIN REACH. WILL CONTINUE TO MONITOR.
[2018-01-17] MEDS ORDERED: fentaNYL 0.05 MG/ML VIAL ONE (08:27)
[2018-01-17] MEDS ORDERED: MIDAZOLAM 2 MG/2 ML VIAL ONE (08:28)
--- NOTE | 2018-01-17 08:45 | NUR ---
OR NURSE ON UNIT READY TO TAKE PATIENT TO OR FOR EGD. WILL CONTINUE TO MONITOR WHEN PATIENT RETURNS.
[2018-01-17] MEDS: FUROSEMIDE 40 MG TAB PO SCH (09:00)
[2018-01-17] MEDS: METOPROLOL SUCCINATE 50 MG TABER PO SCH ×2 (09:00→21:00)
[2018-01-17] MEDS ORDERED: fentaNYL 0.05 MG/ML VIAL IVP ONE (09:20)
[2018-01-17] MEDS ORDERED: MIDAZOLAM 2 MG/2 ML VIAL IVP ONE (09:20)
[2018-01-17] MEDS: TAMSULOSIN 0.4 MG CAP PO SCH (10:14)
[2018-01-17] MEDS: PANTOPRAZOLE 40 MG TABEC PO SCH (10:14)
[2018-01-17] MEDS: OXYBUTYNIN 5 MG TAB PO SCH (10:14)
[2018-01-17] MEDS: FAMOTIDINE 20 MG TAB PO SCH (10:15)
[2018-01-17] MEDS: APIXABAN 2.5 MG TAB PO SCH (10:16)
[2018-01-17] MEDS: FLUTICASONE NASAL 50 MCG/ACTUATION 16 GM BTL NS SCH (10:16)
--- NOTE | 2018-01-17 10:20 | NUR ---
PATIENT LYING DOWN IN BED WITH SON AT BEDSIDE. NO DISTRESS NOTED. DENIES ANY PAIN. SCHEDULED MEDICATIONS DUE GIVEN. BP MED WITHHELD DUE TO DECREASED BLOOD PRESSURE. SAFETY MEASURES IN PLACE, CALL LIGHT WITHIN REACH. WILL CONTINUE TO MONITOR.
--- NOTE | 2018-01-17 10:46 | NUR ---
PATIENT LYING DOWN IN BED WATCHING TV. NO DISTRESS NOTED. DENIES ANY PAIN. SAFETY MEASURES IN PLACE, CALL LIGHT WITHIN REACH. WILL CONTINUE TO MONITOR.
[2018-01-17] MEDS ORDERED: VANCOMYCIN PER PHARMACY MC PRN (10:55)
[2018-01-17] MEDS: NACL 0.9% 1,000 ML IV SCH (12:41)
--- NOTE | 2018-01-17 12:47 | NUR ---
PATIENT SITTING IN BED WITH LUNCH TRAY IN FRONT. SON AT BEDSIDE. NO DISTRESS NOTED. DENIES ANY PAIN. SCHEDULED MEDICATIONS DUE GIVEN. SAFETY MEASURES IN PLACE, CALL LIGHT WITHIN REACH. WILL CONTINUE TO MONITOR.
--- NOTE | 2018-01-17 13:54 | NUR ---
DR. FLORENTINO AT BEDSIDE REVIEWING PLAN OF CARE WITH PATIENT. WILL CONTINUE TO MONITOR.
[2018-01-17] MEDS ORDERED: NACL 0.9% 1,000 ML IV SCH (13:55)
--- NOTE | 2018-01-17 15:00 | NUR ---
PATIENT SITTING IN BED WATCHING TV. NO DISTRESS NOTED. DENIES ANY PAIN. CONDITION UNCHANGED. SAFETY MEASURES IN PLACE, CALL LIGHT WITHIN REACH. WILL CONTINUE TO MONITOR.
--- NOTE | 2018-01-17 15:15 | NUR ---
SPUTUM COLLECTED BY ERIC DIOR
[2018-01-17] MEDS: HYDROcodone/APAP 5/325 MG 1 TAB TAB PO PRN (15:40)
--- NOTE | 2018-01-17 15:41 | NUR ---
PATIENT LYING DOWN IN BED WITH COMPLAINTS OF PAIN, MEDICATED WITH NORCO PER ORDERS. SAFETY MEASURES IN PLACE, CALL LIGHT WITHIN REACH. WILL CONTINUE TO MONITOR.
--- NOTE | 2018-01-17 16:35 | NUR ---
1 UNIT OF PRBC TRANSFUSION STARTED. WILL CONTINUE TO MONITOR PER PROTOCOL.
--- NOTE | 2018-01-17 17:42 | NUR ---
PATIENT SITTING IN BED WITH DINNER TRAY IN FRONT. NO DISTRESS NOTED. DENIES ANY PAIN. 1 UNIT OF BLOOD TRANSFUSION CONTINUING TO INFUSE. NO ADVERSE REACTIONS NOTED. WILL CONTINUE TO MONITOR.
--- NOTE | 2018-01-17 18:15 | NUR ---
BLOOD TRANSFUSION CURRENTLY RUNNING. PATIENT HAS HISTORY OF CHF, IV ZOSYN DUE AT 1800 WILL WAIT UNTIL BLOOD TRANSFUSION COMPLETES TO PREVENT FLUID OVERLOAD. WILL CONTINUE TO MONITOR.
--- NOTE | 2018-01-17 19:20 | NUR ---
1 UNIT PRBC TRANSFUSION COMPLETED. NO ADVERSE REACTION NOTED. IV ZOSYN HANGED PER MD ORDERS. SAFETY MEASURES IN PLACE, CALL LIGHT WITHIN REACH. WILL CONTINUE TO MONITOR.
--- NOTE | 2018-01-17 19:35 | NUR ---
GAVE REPORT TO PROFESSIONAL DEVELOPMENT INSTRUCTOR NURSE FOR CONTINUITY OF CARE. PATIENT IN STABLE CONDITION.
--- NOTE | 2018-01-17 19:36 | NUR ---
REPORT RECEIVED FROM AM NURSE. PT IN STABLE CONDITION. WILL CONTINUE TO MONITOR.
--- NOTE | 2018-01-17 19:45 | NUR ---
PATIENT REPORT RECEIVED FROM MORNING NURSE FOR CONTINUITY OF CARE. PATIENT AOX4 CITIZEN OF [place] SPEAKING. PATIENT'S SON IS AT BEDSIDE. NO SIGNS AND SYMPTOMS OF DISTRESS NOTED. PATIENT IS ON O2 2L NC. IV SITE NOTED ON RIGHT FOREARM. ASYMPTOMATIC, INTACT AND PATENT. PLAN OF CARE DISCUSSED WITH SON AND PATIENT. PATIENT VERBALIZED UNDERSTANDING. BED IN LOWEST POSITION, SIDE RAILS UP AND CALL LIGHT WITHIN REACH. WILL CONTINUE TO MONITOR.
--- NOTE | 2018-01-17 19:45 | NUR ---
REPORT GIVEN TO PM NURSE FOR PT SWITCH. PT IN STABLE CONDITION.
--- NOTE | 2018-01-17 20:00 | NUR ---
MEDICATION EDUCATION GIVEN. PATIENT VERBALIZED UNDERSTANDING. MEDICATION ADMINISTERED ORDERED. PATIENT TOLERATED WELL. WILL CONTINUE TO MONITOR.
[2018-01-17] MEDS: RESTASIS 0.05% OPHTHALMIC EMULSION OP SCH (20:34)
--- NOTE | 2018-01-17 21:45 | NUR ---
1 UNIT PRBC TRANSFUSION STARTED. VITAL SIGNS TAKEN AND ARE WITHIN NORMAL LIMITS. WILL CONTINUE TO MONITOR.
--- NOTE | 2018-01-17 23:30 | NUR ---
CHECKED ON PATIENT. PATIENT ASLEEP BUT EASY TO AWAKEN. NO SIGNS AND SYMPTOMS OF DISTRESS NOTED. BREATHING EVEN AND UNLABORED. BLOOD TRANSFUSION STILL ONGOING. VITAL SIGNS WITHIN NORMAL LIMITS. WILL CONTINUE TO MONITOR.
[2018-01-18] VITALS: BP 120/51
--- NOTE | 2018-01-18 00:35 | NUR ---
1 UNIT BLOOD TRANSFUSION FINISHED. PATIENT TOLERATED WELL. VITAL SIGNS WITHIN NORMAL LIMITS. NO SIGNS AND SYMPTOMS OF DISTRESS NOTED. WILL CONTINUE TO MONITOR.
--- NOTE | 2018-01-18 00:50 | NUR ---
ASSISTED PATIENT TO BEDSIDE COMMODE. PATIENT VOIDED AND HAD A BOWEL MOVEMENT. PERICARE DONE. ASSISTED PATIENT BACK TO BED. WILL CONTINUE TO MONITOR.
[2018-01-18] MEDS: MILD SOAP AND WATER TP SCH ×2 (01:05→12:21)
[2018-01-18] MEDS: HYDRAGUARD CREAM TP SCH ×2 (01:16→12:21)
[2018-01-18] MEDS: PIPER/TAZO 2.25GM/D5W PREMIX 50 ML IV SCH ×4 (01:16→18:12)
[2018-01-18] MEDS: IPRATROPIUM 0.02% 0.5 MG/2.5 ML NEBU INH SCH ×4 (01:26→19:35)
[2018-01-18] MEDS: ALBUTEROL 0.083% 2.5 MG/3 ML NEBU INH SCH ×4 (01:26→19:35)
--- NOTE | 2018-01-18 02:00 | NUR ---
CHECKED ON PATIENT. PATIENT IS ASLEEP. NO SIGNS AND SYMPTOMS OF DISTRESS NOTED. BREATHING EVEN AND UNLABORED. SAFETY PRECAUTIONS IN PLACE. WILL CONTINUE TO MONITOR.
[2018-01-18 04:00] VITALS: BP 132/63
--- NOTE | 2018-01-18 05:00 | NUR ---
ASSISTED PATIENT TO BEDSIDE COMMODE. PATIENT VOIDED. ASSISTED PATIENT BACK TO BED. NO SIGNS AND SYMPTOMS OF DISTRESS NOTED. WILL CONTINUE TO MONITOR.
[2018-01-18] MEDS: DILTIAZEM 60 MG TAB PO SCH ×3 (05:49→20:45)
[2018-01-18 07:17] LABS: HEMATOCRIT 31.9 % (36-52); HEMOGLOBIN 10.6 g/dL (12.0-18.0); LYMPHOCYTES # (AUTO) 0.5 K/uL (2.0-11.5); LYMPHOCYTES % (AUTO) 4.3 % (20.5-51.1); MEAN CORPUSCULAR HEMOGLOBIN 30 pg (27-31); MEAN CORPUSCULAR HGB CONC 33 g/dL (33-37); MEAN CORPUSCULAR VOLUME 91.5 fL (80-94); MONOCYTES # (AUTO) 0.4 K/uL (0.8-1.0); MONOCYTES % (AUTO) 3.3 % (1.7-9.3); NEUTROPHILS # (AUTO) 11.5 K/uL (1.8-7.7); NEUTROPHILS % (AUTO) 92.4 % (42.2-75.2); PLATELET COUNT (AUTO) 187 K/uL (140-450); RED BLOOD CELL COUNT(AUTO) 3.48 MIL/uL (4.20-6.10); WHITE BLOOD COUNT (AUTO) 12.4 K/uL (4.8-10.8)
--- NOTE | 2018-01-18 07:20 | NUR ---
PATIENT REPORT GIVEN TO MORNING NURSE AT BEDSIDE. PATIENT IS IN STABLE CONDITION.
--- NOTE | 2018-01-18 07:21 | NUR ---
RECEIVED REPORT FROM PLANT SAFETY LEADER RN. PATIENT IS AAOX4, HAS NO SIGNS AND SYMPTOMS OF ACUTE RESPIRATORY DISTRESS NOTED AT THIS TIME. HAS NASAL CANNULA AT 2LPM. HAS IV TO THE RIGHT FOREARM 20G, INFUSING NS AT 40 ML/HR. SITE IS CLEAN, DRY, PATENT AND INTACT. BEDSIDE COMMODE IS NEXT TO BED, BED ALARM IS ON. DISCUSSED PLAN OF CARE WITH PATIENT AND HE VERBALIZED UNDERSTANDING. BED IN LOWEST POSITION, SIDE RAILS UP X2, CALL LIGHT WITHIN REACH. WILL CONTINUE TO MONITOR.
[2018-01-18 07:30] LABS: ANION GAP 13.6 (8-16); CARBON DIOXIDE 23.3 mmol/L (21-32); CHLORIDE 103 mmol/L (98-107); CREATININE 1.6 mg/dL (0.7-1.3); GLUCOSE 174 mg/dL (74-106); POTASSIUM 3.9 mmol/L (3.5-5.1); SODIUM SERUM 136 mmol/L (136-145); UREA NITROGEN, BLOOD 53 mg/dL (7-18)
[2018-01-18 08:00] VITALS: BP 119/51
[2018-01-18] MEDS ORDERED: VANCOMYCIN 750 MG in DEXTROSE 5% 250 ML IV SCH (09:00)
[2018-01-18] MEDS: RESTASIS 0.05% OPHTHALMIC EMULSION OP SCH ×2 (09:23→20:45)
[2018-01-18] MEDS: methylPREDNISolone SS 40 MG/ML VIAL IVP SCH ×2 (09:24→20:45)
[2018-01-18] MEDS: METOPROLOL SUCCINATE 50 MG TABER PO SCH ×2 (09:25→20:46)
[2018-01-18] MEDS: OXYBUTYNIN 5 MG TAB PO SCH (09:25)
[2018-01-18] MEDS: FUROSEMIDE 40 MG TAB PO SCH (09:25)
[2018-01-18] MEDS: TAMSULOSIN 0.4 MG CAP PO SCH (09:25)
[2018-01-18] MEDS: PANTOPRAZOLE 40 MG TABEC PO SCH (09:26)
[2018-01-18] MEDS: FLUTICASONE NASAL 50 MCG/ACTUATION 16 GM BTL NS SCH (09:26)
--- NOTE | 2018-01-18 10:05 | NUR ---
PATIENT RESTING IN BED. NO SIGNS AND SYMPTOMS OF ACUTE DISTRESS NOTED AT THIS TIME.
[2018-01-18 12:00] VITALS: BP 134/57
[2018-01-18] MEDS ORDERED: PSYLLIUM 12.2 GM/PKT PO SCH (13:22)
--- NOTE | 2018-01-18 13:30 | NUR ---
PATIENT STATED THAT HE IS DOING OKAY. WILL CONTINUE TO MONITOR.
--- NOTE | 2018-01-18 15:55 | NUR ---
PLACED TUBE PROTECTORS ON PATIENT NASAL CANNULA, STATING THAT IT WAS IRRITATING HIM ON HIS EARS.
[2018-01-18 16:00] VITALS: BP 147/70
--- NOTE | 2018-01-18 16:00 | NUR ---
SPOKE WITH DR PUENTES TO INFORM HIM THAT DR FLORENTINO HAD PUT A DISCHARGE ORDER IN STATING OKAY TO DISCHARGE PER CONSULT. DR PEUNTES DOESN'T DEEM THE PATIENT FIT TO DISCHARGE YET DUE TO HIM WANTING THE PATIENT TO CONTINUE RECEIVING IV ANTIBIOTICS.
--- NOTE | 2018-01-18 19:20 | NUR ---
ENDORSED PATIENT TO RESTAURANT CREW MEMBER RN FOR CONTINUITY OF CARE. PATIENT IN STABLE CONDITION.
--- NOTE | 2018-01-18 19:21 | NUR ---
RECEIVED REPORT AT PT BEDSIDE FROM GREENHOUSE STAFF, FOR CONTINUITY OF CARE. PATIENT IS A/OX4 ON 3L O2 VIA NASAL CANNULA. ABLE TO MAKE NEEDS KNOWN, ABLE TO FOLLOW COMMANDS. PT HAS A SCAB-TYPE CUT TO RIGHT BUTTOCK. PATIENT HAS 20G IV TO LEFT FOREARM, ASYMPTOMATIC, INTACT, PATENT. RESPIRATIONS EVEN AND UNLABORED. UPDATED BOARD. VITAL SIGNS WITHIN NORMAL LIMITS. PT STABLE, NO SIGNS OF DISTRESS NOTED AT THIS TIME. BED IN LOWEST POSITION, BED ALARM ON. CALL LIGHT WITHIN REACH, WILL CONTINUE TO MONITOR.
[2018-01-18 20:00] VITALS: BP 138/66
[2018-01-18] MEDS: ACETAMINOPHEN 325 MG TAB PO PRN (20:45)
--- NOTE | 2018-01-18 20:50 | NUR ---
ADMINISTERED SCHEDULED MEDICATIONS, PT TOLERATED WELL. PT STABLE, NO SIGNS OF DISTRESS NOTED AT THIS TIME. BED IN LOWEST POSITION, BED ALARM ON. CALL LIGHT WITHIN REACH, WILL CONTINUE TO MONITOR.
[2018-01-19] VITALS: BP 148/62
--- NOTE | 2018-01-19 | NUR ---
VITAL SIGNS WITHIN NORMAL LIMITS. PT STABLE, NO SIGNS OF DISTRESS NOTED AT THIS TIME. BED IN LOWEST POSITION, BED ALARM ON. CALL LIGHT WITHIN REACH, WILL CONTINUE TO MONITOR.
[2018-01-19] MEDS: PIPER/TAZO 2.25GM/D5W PREMIX 50 ML IV SCH ×4 (00:56→17:44)
[2018-01-19] MEDS: MILD SOAP AND WATER TP SCH ×2 (01:39→13:44)
[2018-01-19] MEDS: HYDRAGUARD CREAM TP SCH ×2 (01:40→13:37)
[2018-01-19] MEDS: IPRATROPIUM 0.02% 0.5 MG/2.5 ML NEBU INH SCH ×3 (01:45→13:58)
[2018-01-19] MEDS: ALBUTEROL 0.083% 2.5 MG/3 ML NEBU INH SCH ×3 (01:45→13:58)
[2018-01-19] MEDS: ACETAMINOPHEN 325 MG TAB PO PRN (02:25)
[2018-01-19 04:00] VITALS: BP 122/75
[2018-01-19] MEDS: DILTIAZEM 60 MG TAB PO SCH ×2 (05:53→13:36)
[2018-01-19 06:54] LABS: HEMATOCRIT 32.9 % (36-52); LYMPHOCYTES # (AUTO) 0.6 K/uL (2.0-11.5); LYMPHOCYTES % (AUTO) 5.8 % (20.5-51.1); MEAN CORPUSCULAR HEMOGLOBIN 31 pg (27-31); MEAN CORPUSCULAR HGB CONC 34 g/dL (33-37); MEAN CORPUSCULAR VOLUME 91.7 fL (80-94); MONOCYTES # (AUTO) 0.3 K/uL (0.8-1.0); MONOCYTES % (AUTO) 2.9 % (1.7-9.3); NEUTROPHILS # (AUTO) 9.9 K/uL (1.8-7.7); NEUTROPHILS % (AUTO) 91.3 % (42.2-75.2); PLATELET COUNT (AUTO) 178 K/uL (140-450); RED BLOOD CELL COUNT(AUTO) 3.58 MIL/uL (4.20-6.10); RED CELL DISTRIBUTION WIDTH 15.1 % (11.6-13.7); WHITE BLOOD COUNT (AUTO) 10.8 K/uL (4.8-10.8)
[2018-01-19 07:15] LABS: ANION GAP 11.9 (8-16); CARBON DIOXIDE 23.9 mmol/L (21-32); CHLORIDE 103 mmol/L (98-107); CREATININE 1.5 mg/dL (0.7-1.3); GLUCOSE 194 mg/dL (74-106); POTASSIUM 3.8 mmol/L (3.5-5.1); SODIUM SERUM 135 mmol/L (136-145); UREA NITROGEN, BLOOD 46 mg/dL (7-18)
--- NOTE | 2018-01-19 07:24 | NUR ---
ENDORSED PT TO DAY SHIFT RN FOR CONTINUITY OF CARE. PT IN STABLE CONDITION.
--- NOTE | 2018-01-19 07:25 | NUR ---
RECEIVED REPORT FROM TRANSPORTATION ENGINEER RN. PATIENT IS AAOX4, HAS NO SIGNS AND SYMPTOMS OF ACUTE RESPIRATORY DISTRESS NOTED AT THIS TIME. HAS NASAL CANNULA AT 2LPM. HAS IV TO THE RIGHT FOREARM 20G, INFUSING NS AT 40 ML/HR. SITE IS CLEAN, DRY, PATENT AND INTACT. BEDSIDE COMMODE IS NEXT TO BED, BED ALARM IS ON. DISCUSSED PLAN OF CARE WITH PATIENT AND HE VERBALIZED UNDERSTANDING. BED IN LOWEST POSITION, SIDE RAILS UP X2, CALL LIGHT WITHIN REACH. WILL CONTINUE TO MONITOR.
[2018-01-19 08:00] VITALS: BP 128/69
[2018-01-19] MEDS: TAMSULOSIN 0.4 MG CAP PO SCH (08:59)
[2018-01-19] MEDS: methylPREDNISolone SS 40 MG/ML VIAL IVP SCH (08:59)
[2018-01-19] MEDS ORDERED: PSYLLIUM 12.2 GM/PKT PO SCH (09:00)
[2018-01-19] MEDS: RESTASIS 0.05% OPHTHALMIC EMULSION OP SCH (09:00)
--- NOTE | 2018-01-19 09:00 | NUR ---
PT IN BED, AWAKE AND ALERT. EDUCATION PROVIDED ABOUT PLAN OF CARE AND MEDICATION. IV DRESSING CHANGED BECAUSE IT BECAME SOILED. LINE IS PATENT. ABLE TO SWALLOW WITHOUT A PROBLEM. ALL POSSESSIONS WITHIN REACH, BED IN LOWEST POSITION, CALL LIGHT WITHIN REACH. WILL ENSURE FREQ ROUNDS.
[2018-01-19] MEDS: OXYBUTYNIN 5 MG TAB PO SCH (09:01)
[2018-01-19] MEDS: FLUTICASONE NASAL 50 MCG/ACTUATION 16 GM BTL NS SCH (09:01)
[2018-01-19] MEDS: PANTOPRAZOLE 40 MG TABEC PO SCH (09:02)
[2018-01-19] MEDS: METOPROLOL SUCCINATE 50 MG TABER PO SCH (09:03)
[2018-01-19] MEDS: FUROSEMIDE 40 MG TAB PO SCH (09:03)
--- NOTE | 2018-01-19 11:10 | NUR ---
PATIENT AWAKE IN BED. ATTEMPTED TO AMBULATE EARLIER. PT C/O OF FEELING DIZZY. HOB PLACED AT 45 DEGREES, V/S ASSESSED, REARRANGED PILLOWS FOR PATIENT COMFORT. GAVE CALL LIGHT AND SHOWN AGAIN HOW TO USE IT IF NEEDED. BED IN LOWEST POSITION.
--- NOTE | 2018-01-19 11:21 | NUR ---
FAXED INITIAL REVIEW TO [facility] [phone] PHONE DORIS [phone]
[2018-01-19 12:00] VITALS: BP 127/69
--- NOTE | 2018-01-19 12:00 | NUR ---
Director Of Investigations Notes: I met with patient again at about 12:00 to discuss and get patient's decision about getting D/C today to a SNF for short term due to need for continuance of care and treatment for IV Antibiotic. Patient was alert and calm stated that he has been thinking about it, talk about it with [facility]. MD [place] and has decided and agreed to go to SNF. These Fleshing Machine Operator asked Patient about preffernces and Patient stated wanting to go close to [facility].
--- NOTE | 2018-01-19 13:00 | NUR ---
Show Horse Driver notes: These engineering writer gather Patient information, Clinicals and MD order for MD and faxed inquires to [facility], [facility], [facility], [facility], [facility], and [facility].
--- NOTE | 2018-01-19 13:00 | NUR ---
PATIENT RESTING IN BED. SON AT BESIDE. NO ACUTE DISTRESS NOTED. SAFETY INTERVENTIONS STILL ACTIVE. WILL CONTINUE TO MONITOR.
--- NOTE | 2018-01-19 14:30 | NUR ---
Finishing Inspector Notes: I received a call form Merle from [facility] stating that she has received and review patient's clinicals. Per Merle she has a bed open and is able to accept patient to their facility. I thank her for information and renal case manager was aware by these greeting card writer.
[2018-01-19] MEDS ORDERED: VANCOMYCIN 1GM/DEXT 5% PREMIX 200 ML IV SCH (15:00)
--- NOTE | 2018-01-19 15:00 | NUR ---
PT ASLEEP IN BED, AWOKEN TO EDUCATE ABOUT DUE ANTIBIOTIC. PT STATED THEY UNDERSTAND PLAN OF CARE. ASKED TO EAT ICE. PT SWALLOWED ICE WITH NO PROBLEM. WILL CONTINUE TO MONITOR.
--- NOTE | 2018-01-19 15:58 | NUR ---
PATIENT ACCEPTED [place] [facility] [place]. AUTH FOR [facility] FROM DORIS FROM [facility] [place] IS [id number]. THE AUTH FOR [facility] IS [id number]. SPOKE WITH STEVEN AT [facility] [place]. PATIENT CAN GO TO ROOM 29B UNDER DR. Thierry TOBIAS. CALLED [facility] AND SET UP SQL ANALYST FOR 6:30P.Abdiel BOWMAN RN CHARGE NURSE AWARE.
[2018-01-19 16:00] VITALS: BP 138/72
--- NOTE | 2018-01-19 16:29 | NUR ---
01/19/18 RD FOLLOW UP COMPLETED PLEASE REFER TO NUTRITION ASSESSMENT UNDER CARE ACTIVITY FOR ESTIMATED NUTRITIONAL NEEDS. 1. RECOMMEND CCHO 60 GM AND CARDIAC PUREE DIET 2. D/C [facility] BID 3. RD TO FOLLOW-UP 2-3 DAYS, HIGH RISK NADINE MARTIN, RD
--- NOTE | 2018-01-19 19:00 | NUR ---
PT LEFT WITH [facility] TRANSFER ON WC. LEFT WITH IV SITE ON RIGHT HAND ON SL FOR CONTINUED ANTIBIOTICS. LEFT WITH NC. ALL BELONGINGS WERE WITH HIM. PATIENT IS STABLE AND IN NO PAIN. ACCOMPANIED BY SON
[2018-01-20 06:22] LABS: FERRITIN 223 ng/mL (30-400); FOLIC ACID > 20.00 ng/mL (>3.0)
== END 2018-01-19 19:00 | DRG 871 ==
LOC: MED 21:07 → MTU 23:21
PROVIDERS: ADMIT Hospitalist; ATTEND Hospitalist
PROC: 30233N1 Transfusion of Nonautologous Red Blood Cells into Peripheral Vein, Percutaneous Approach (ICD-10-PCS; 2018-01-16)
PROC: 0W3P8ZZ Control Bleeding in Gastrointestinal Tract, Via Natural or Artificial Opening Endoscopic (ICD-10-PCS; principal; 2018-01-18)
DX: A41.9 Sepsis, unspecified organism (principal); J18.9 Pneumonia, unspecified organism; J96.21 Acute and chronic respiratory failure with hypoxia; J44.0 Chronic obstructive pulmonary disease with (acute) lower respiratory infection; I13.0 Hypertensive heart and chronic kidney disease with heart failure and stage 1 through stage 4 chronic kidney disease, or unspecified chronic kidney disease; J44.1 Chronic obstructive pulmonary disease with (acute) exacerbation; K92.1 Melena; Q27.30 Arteriovenous malformation, site unspecified; I48.91 Unspecified atrial fibrillation; I50.9 Heart failure, unspecified; K22.2 Esophageal obstruction; J84.10 Pulmonary fibrosis, unspecified; N18.9 Chronic kidney disease, unspecified; D64.9 Anemia, unspecified; K44.9 Diaphragmatic hernia without obstruction or gangrene; K31.819 Angiodysplasia of stomach and duodenum without bleeding; E03.9 Hypothyroidism, unspecified; M19.90 Unspecified osteoarthritis, unspecified site; N40.0 Benign prostatic hyperplasia without lower urinary tract symptoms; Z87.891 Personal history of nicotine dependence; Z95.0 Presence of cardiac pacemaker; Z87.440 Personal history of urinary (tract) infections; Z88.6 Allergy status to analgesic agent; Z79.2 Long term (current) use of antibiotics; Z79.01 Long term (current) use of anticoagulants; Z79.899 Other long term (current) drug therapy
CPT/HCPCS: 36415; 71045; 71250; 80048; 80053; 80202; 82272; 82607; 82728; 82746; 83540; 83735; 83880; 84484; 85025; 85610; 85730; 86886; 86900; 86901; 86920; 87070; 87081; 87205; 93005; 94640; 96365; 96366; 96375; 97110; 97140; 99291; J1160; J2250; J2405; J2543; J2920; J2930; J3010; J3370; J3475; J7030; J7060; J7613; J7644; P9016; Q0092

== ENCOUNTER 2018-01-24 22:20 | Inpatient (IN) | payer OTHER ==
[~2018-01-24] VITALS: Ht 165.1 cm; Wt 56.7 kg
[2018-01-24 22:20] VITALS: BP 133/57
[~2018-01-24 22:20] MED LIST changes: -AMOX-999 PO; -APIX5TAB PO; -FAMO-90 PO; -LEVO750T2 PO
[2018-01-24] MEDS ORDERED: PIPERACILLIN/TAZOBACTAM 4.5 GM in DEXTROSE 5% 100 ML IV ONE (22:40)
[2018-01-24] MEDS ORDERED: NYST100022 PO (22:49)
[2018-01-24] MEDS ORDERED: duoneb HHN (22:49)
[2018-01-24] MEDS ORDERED: PIPE50SO5 IV (22:49)
[2018-01-24] MEDS ORDERED: VANC1PLA7 IV (22:49)
[2018-01-24 23:25] LABS: BASOPHILS % (AUTO) 0.2 % (0.0-2.0); EOSINOPHILS # (AUTO) 0.4 K/uL (0-0.4); HEMATOCRIT 35.4 % (36-52); HEMOGLOBIN 11.5 g/dL (12.0-18.0); LYMPHOCYTES # (AUTO) 1.1 K/uL (2.0-11.5); MEAN CORPUSCULAR HEMOGLOBIN 30 pg (27-31); MEAN CORPUSCULAR HGB CONC 33 g/dL (33-37); MEAN CORPUSCULAR VOLUME 93.4 fL (80-94); MONOCYTES # (AUTO) 1.3 K/uL (0.8-1.0); MONOCYTES % (AUTO) 10.6 % (1.7-9.3); NEUTROPHILS # (AUTO) 9.8 K/uL (1.8-7.7); NEUTROPHILS % (AUTO) 77.5 % (42.2-75.2); PLATELET COUNT (AUTO) 260 K/uL (140-450); RED BLOOD CELL COUNT(AUTO) 3.79 MIL/uL (4.20-6.10); RED CELL DISTRIBUTION WIDTH 15.9 % (11.6-13.7); WHITE BLOOD COUNT (AUTO) 12.7 K/uL (4.8-10.8)
[2018-01-24 23:33] LABS: APPEARANCE,URINE CLEAR (CLEAR); BILIRUBIN,URINE NEGATIVE (NEGATIVE); BLOOD, URINE NEGATIVE (NEGATIVE); COLOR,URINE YELLOW (YELLOW); LEUKOCYTE ESTERASE ,URINE NEGATIVE (NEGATIVE); NITRITE, URINE NEGATIVE (NEGATIVE); UGLUCOSE NEGATIVE (NEGATIVE)
[2018-01-24 23:47] LABS: ANION GAP 12.4 (8-16); CARBON DIOXIDE 26.5 mmol/L (21-32); CHLORIDE 99 mmol/L (98-107); CREATININE 1.4 mg/dL (0.7-1.3); GLUCOSE 141 mg/dL (74-106); POTASSIUM 3.9 mmol/L (3.5-5.1); SODIUM SERUM 134 mmol/L (136-145); UREA NITROGEN, BLOOD 24 mg/dL (7-18)
[2018-01-24] MEDS ORDERED: PIPERACILLIN/TAZOBACTAM 4.5 GM VIAL IV ONE (23:49)
[2018-01-24 23:51] LABS: ALBUMIN 2.3 g/dL (3.4-5.0); ASPARTATE AMINOTRANSFERASE 13 U/L (15-37); LIPASE 126 U/L (73-393); TOTAL BILIRUBIN 0.6 mg/dL (0.0-1.0)
[2018-01-24 23:54] LABS: LYMPHOCYTES % (AUTO) 8.7 % (20.5-51.1); PROTHROMBIN TIME 10.6 secs (10.8-13.4)
[2018-01-24 23:58] LABS: CREATINE KINASE MB 1.9 ng/mL (0-3.6)
[2018-01-25] MEDS ORDERED: ALBUTEROL 0.083% 2.5 MG/3 ML NEBU INH ONE (00:40)
[2018-01-25] MEDS ORDERED: IPRATROPIUM 0.02% 0.5 MG/2.5 ML NEBU INH ONE (00:40)
[2018-01-25] MEDS ORDERED: LORazepam 2 MG/ML VIAL IVP PRN (04:00)
[2018-01-25] MEDS ORDERED: ONDANSETRON 4 MG/2 ML VIAL IVP PRN (04:00)
[2018-01-25] MEDS ORDERED: ACETAMINOPHEN 325 MG TAB PO PRN (04:00)
[2018-01-25] MEDS ORDERED: VANCOMYCIN PER PHARMACY MC PRN (04:00)
[2018-01-25 04:40] VITALS: BP 93/81
[2018-01-25] MEDS ORDERED: PIPERACILLIN/TAZOBACTAM 3.375 GM in DEXTROSE 5% 50 ML IV SCH (05:00)
[2018-01-25] MEDS ORDERED: VANCOMYCIN 1GM/DEXT 5% PREMIX 200 ML IV SCH (05:00)
[2018-01-25] MEDS ORDERED: PIPERACILLIN/TAZOBACTAM 2.25 GM VIAL IV ONE (05:43)
[2018-01-25] MEDS ORDERED: VANCOMYCIN 1,000 MG VIAL ONE (05:44)
[2018-01-25] MEDS: PIPER/TAZO 2.25GM/D5W PREMIX 50 ML IV SCH ×3 (06:13→17:52)
[2018-01-25] MEDS ORDERED: ALBUTEROL 0.083% 2.5 MG/3 ML NEBU INH SCH (07:00)
[2018-01-25] MEDS ORDERED: IPRATROPIUM 0.02% 0.5 MG/2.5 ML NEBU INH SCH (07:00)
[2018-01-25 07:12] LABS: BASOPHILS % (AUTO) 0.1 % (0.0-2.0); EOSINOPHILS # (AUTO) 0.3 K/uL (0-0.4); EOSINOPHILS % (AUTO) 2.9 % (0.0-4.0); HEMATOCRIT 36.3 % (36-52); HEMOGLOBIN 11.9 g/dL (12.0-18.0); LYMPHOCYTES # (AUTO) 1.1 K/uL (2.0-11.5); LYMPHOCYTES % (AUTO) 10.6 % (20.5-51.1); MEAN CORPUSCULAR HEMOGLOBIN 31 pg (27-31); MEAN CORPUSCULAR HGB CONC 33 g/dL (33-37); MEAN CORPUSCULAR VOLUME 94.2 fL (80-94); MONOCYTES # (AUTO) 1.2 K/uL (0.8-1.0); MONOCYTES % (AUTO) 11.4 % (1.7-9.3); PLATELET COUNT (AUTO) 257 K/uL (140-450); RED BLOOD CELL COUNT(AUTO) 3.85 MIL/uL (4.20-6.10); RED CELL DISTRIBUTION WIDTH 15.7 % (11.6-13.7); WHITE BLOOD COUNT (AUTO) 10.6 K/uL (4.8-10.8)
[2018-01-25 07:37] LABS: ALBUMIN 2.2 g/dL (3.4-5.0); ANION GAP 11.1 (8-16); ASPARTATE AMINOTRANSFERASE 12 U/L (15-37); CARBON DIOXIDE 27.2 mmol/L (21-32); CHLORIDE 101 mmol/L (98-107); CREATININE 1.3 mg/dL (0.7-1.3); GLUCOSE 119 mg/dL (74-106); POTASSIUM 4.3 mmol/L (3.5-5.1); SODIUM SERUM 135 mmol/L (136-145); TOTAL BILIRUBIN 0.8 mg/dL (0.0-1.0); UREA NITROGEN, BLOOD 20 mg/dL (7-18)
[2018-01-25 08:00] VITALS: BP 116/72
[2018-01-25 08:50] LABS: CREATINE KINASE MB 2.1 ng/mL (0-3.6)
[2018-01-25] MEDS ORDERED: NON-FORMULARY ITEM (Tiotropium Bromide* (Spiriva Mdi*) 1 CAP) INH SCH (09:00)
[2018-01-25] MEDS ORDERED: FLUTICASONE NASAL 50 MCG/ACTUATION 16 GM BTL NS SCH (09:00)
[2018-01-25] MEDS ORDERED: CYCLOSPORINE OP SCH (09:00)
[2018-01-25] MEDS: OXYBUTYNIN 5 MG TAB PO SCH (09:03)
[2018-01-25] MEDS: DILTIAZEM 120 MG CAPER PO SCH (09:03)
[2018-01-25] MEDS: FUROSEMIDE 40 MG TAB PO SCH (09:04)
[2018-01-25] MEDS: METOPROLOL 50 MG TAB PO SCH ×2 (09:04→21:00)
[2018-01-25] MEDS: FLUTICASONE NASAL 50 MCG/ACTUATION 16 GM BTL NS SCH (09:05)
[2018-01-25] MEDS: ENOXAPARIN 30 MG/0.3 ML SYR SUBQ SCH (09:08)
[2018-01-25] MEDS ORDERED: ALBUTEROL 0.083% 2.5 MG/3 ML NEBU INH PRN (09:20)
[2018-01-25] MEDS ORDERED: IPRATROPIUM 0.02% 0.5 MG/2.5 ML NEBU INH PRN (09:20)
[2018-01-25] MEDS: ALBUTEROL 0.083% 2.5 MG/3 ML NEBU INH SCH ×4 (11:00→23:05)
[2018-01-25] MEDS: IPRATROPIUM 0.02% 0.5 MG/2.5 ML NEBU INH SCH ×4 (11:58→23:05)
[2018-01-25 12:00] VITALS: BP 130/73
[2018-01-25] MEDS: methylPREDNISolone SS 125 MG/2 ML VIAL IVP SCH ×2 (12:20→21:17)
[2018-01-25 16:00] VITALS: BP 121/63
[2018-01-25 20:00] VITALS: BP 121/52
[2018-01-25] MEDS: TAMSULOSIN 0.4 MG CAP PO SCH (21:17)
[2018-01-26] VITALS: BP 122/50
[2018-01-26] MEDS: PIPER/TAZO 2.25GM/D5W PREMIX 50 ML IV SCH ×4 (00:31→17:41)
[2018-01-26] MEDS: NACL 0.9% IRR 250 ML BOTTLE IR SCH ×2 (01:44→13:00)
[2018-01-26] MEDS: HYDRAGUARD CREAM TP SCH ×2 (01:45→13:00)
[2018-01-26 04:00] VITALS: BP 128/51
[2018-01-26 04:23] LABS: BASOPHILS % (AUTO) 0.2 % (0.0-2.0); HEMATOCRIT 31.7 % (36-52); HEMOGLOBIN 10.4 g/dL (12.0-18.0); LYMPHOCYTES # (AUTO) 0.5 K/uL (2.0-11.5); LYMPHOCYTES % (AUTO) 5.1 % (20.5-51.1); MEAN CORPUSCULAR HEMOGLOBIN 30 pg (27-31); MEAN CORPUSCULAR HGB CONC 33 g/dL (33-37); MEAN CORPUSCULAR VOLUME 92.2 fL (80-94); MONOCYTES # (AUTO) 0.1 K/uL (0.8-1.0); MONOCYTES % (AUTO) 1.4 % (1.7-9.3); NEUTROPHILS # (AUTO) 9.6 K/uL (1.8-7.7); NEUTROPHILS % (AUTO) 93.3 % (42.2-75.2); PLATELET COUNT (AUTO) 239 K/uL (140-450); RED BLOOD CELL COUNT(AUTO) 3.44 MIL/uL (4.20-6.10); RED CELL DISTRIBUTION WIDTH 15.7 % (11.6-13.7); WHITE BLOOD COUNT (AUTO) 10.2 K/uL (4.8-10.8)
[2018-01-26] MEDS: VANCOMYCIN 750 MG in DEXTROSE 5% 250 ML IV SCH (04:34)
[2018-01-26] MEDS: methylPREDNISolone SS 125 MG/2 ML VIAL IVP SCH ×3 (04:48→21:30)
[2018-01-26 04:58] LABS: CREATINE KINASE MB 1.8 ng/mL (0-3.6)
[2018-01-26] MEDS: ALBUTEROL 0.083% 2.5 MG/3 ML NEBU INH SCH ×5 (06:38→23:25)
[2018-01-26] MEDS: IPRATROPIUM 0.02% 0.5 MG/2.5 ML NEBU INH SCH ×5 (06:40→23:25)
[2018-01-26 07:05] LABS: ANION GAP 13.2 (8-16); CHLORIDE 98 mmol/L (98-107); CREATININE 1.8 mg/dL (0.7-1.3); GLUCOSE 329 mg/dL (74-106); POTASSIUM 4.2 mmol/L (3.5-5.1); SODIUM SERUM 131 mmol/L (136-145); UREA NITROGEN, BLOOD 33 mg/dL (7-18)
[2018-01-26 08:00] VITALS: BP 123/55
[2018-01-26] MEDS: METOPROLOL 50 MG TAB PO SCH ×2 (09:05→21:32)
[2018-01-26] MEDS: FLUTICASONE NASAL 50 MCG/ACTUATION 16 GM BTL NS SCH (09:05)
[2018-01-26] MEDS: OXYBUTYNIN 5 MG TAB PO SCH (09:05)
[2018-01-26] MEDS: DILTIAZEM 120 MG CAPER PO SCH (09:05)
[2018-01-26] MEDS: FUROSEMIDE 40 MG TAB PO SCH (09:06)
[2018-01-26] MEDS: ENOXAPARIN 30 MG/0.3 ML SYR SUBQ SCH (09:07)
[2018-01-26 12:00] VITALS: BP 114/55
[2018-01-26 16:00] VITALS: BP 110/52
[2018-01-26 20:00] VITALS: BP 110/49
[2018-01-26] MEDS: TAMSULOSIN 0.4 MG CAP PO SCH (21:31)
[2018-01-27] VITALS: BP 122/48
[2018-01-27] MEDS: PIPER/TAZO 2.25GM/D5W PREMIX 50 ML IV SCH ×2 (00:11→06:30)
[2018-01-27] MEDS: NACL 0.9% IRR 250 ML BOTTLE IR SCH ×2 (01:33→12:55)
[2018-01-27] MEDS: HYDRAGUARD CREAM TP SCH ×2 (01:33→12:58)
[2018-01-27] MEDS: IPRATROPIUM 0.02% 0.5 MG/2.5 ML NEBU INH SCH ×4 (03:30→15:17)
[2018-01-27] MEDS: ALBUTEROL 0.083% 2.5 MG/3 ML NEBU INH SCH ×4 (03:30→15:17)
[2018-01-27 04:00] VITALS: BP 130/59
[2018-01-27] MEDS: VANCOMYCIN 750 MG in DEXTROSE 5% 250 ML IV SCH (05:04)
[2018-01-27] MEDS: methylPREDNISolone SS 125 MG/2 ML VIAL IVP SCH (05:11)
[2018-01-27 08:00] VITALS: BP 119/61
[2018-01-27] MEDS: OXYBUTYNIN 5 MG TAB PO SCH (08:40)
[2018-01-27] MEDS: METOPROLOL 50 MG TAB PO SCH (08:41)
[2018-01-27] MEDS: FUROSEMIDE 40 MG TAB PO SCH (08:41)
[2018-01-27] MEDS: FLUTICASONE NASAL 50 MCG/ACTUATION 16 GM BTL NS SCH (08:42)
[2018-01-27] MEDS: DILTIAZEM 120 MG CAPER PO SCH (08:42)
[2018-01-27] MEDS: ENOXAPARIN 30 MG/0.3 ML SYR SUBQ SCH (08:43)
[2018-01-27 10:27] LABS: ANION GAP 14.3 (8-16); CARBON DIOXIDE 24.2 mmol/L (21-32); CHLORIDE 96 mmol/L (98-107); CREATININE 1.4 mg/dL (0.7-1.3); GLUCOSE 321 mg/dL (74-106); POTASSIUM 3.5 mmol/L (3.5-5.1); SODIUM SERUM 131 mmol/L (136-145); UREA NITROGEN, BLOOD 41 mg/dL (7-18)
[2018-01-27 12:00] VITALS: BP 120/53
[2018-01-27 16:00] VITALS: BP 106/40
[2018-02-23] MEDS ORDERED: ATI.5 PO (09:31)
[2018-02-23] MEDS ORDERED: BENZ100C6 PO (09:31)
[2018-02-23] MEDS ORDERED: DEXT5SYR3 PO (09:31)
[2018-02-23] MEDS ORDERED: TRAM50TA3 PO (09:31)
[2018-02-23] MEDS ORDERED: DOCU-463 PO (09:31)
[2018-02-25] MEDS ORDERED: PRED20TA5 PO (12:01)
[2018-02-25] MEDS ORDERED: ATRN IH (12:01)
[2018-02-25] MEDS ORDERED: HUMSLIDE SUBQ (12:01)
[2018-02-25] MEDS ORDERED: LOV30I SUBQ (12:01)
[2018-02-25] MEDS ORDERED: FURO20TA8 PO (12:01)
[2018-02-25] MEDS ORDERED: PRON IH (12:01)
== END 2018-01-27 17:35 | DRG 871 ==
LOC: MED 22:20 → MIC 01-25 04:08 → OBSVTOIN 01-25 09:07 → MTU 01-25 14:00
PROVIDERS: ADMIT Hospitalist; ATTEND Hospitalist
DX: A41.9 Sepsis, unspecified organism (principal); E43 Unspecified severe protein-calorie malnutrition; I21.A1 Myocardial infarction type 2; J96.21 Acute and chronic respiratory failure with hypoxia; I50.43 Acute on chronic combined systolic (congestive) and diastolic (congestive) heart failure; J44.1 Chronic obstructive pulmonary disease with (acute) exacerbation; I48.2 Chronic atrial fibrillation; I48.91 Unspecified atrial fibrillation; J84.10 Pulmonary fibrosis, unspecified; I11.0 Hypertensive heart disease with heart failure; D64.9 Anemia, unspecified; Z66 Do not resuscitate; I49.1 Atrial premature depolarization; M19.90 Unspecified osteoarthritis, unspecified site; N40.0 Benign prostatic hyperplasia without lower urinary tract symptoms; Z99.81 Dependence on supplemental oxygen; Z88.5 Allergy status to narcotic agent; Z88.8 Allergy status to other drugs, medicaments and biological substances; Z87.891 Personal history of nicotine dependence; Z68.20 Body mass index [BMI] 20.0-20.9, adult; I49.5 Sick sinus syndrome
CPT/HCPCS: 96365; 99291; G0378; 36415; 36600; 71045; 80048; 80053; 80202; 81003; 82550; 82553; 82803; 82948; 83540; 83605; 83690; 83735; 84484; 85025; 85610; 85730; 86886; 86900; 86901; 87040; 87081; 87086; 93005; 94640; 94667; 97110; 97116; 97140; 97530; J1650; J2543; J2930; J3370; J7030; J7060; J7613; J7644; Q0092